=== PATIENT | female | born 1930 | race Caucasian/White ===

== ENCOUNTER 2017-05-10 08:23 | Emergency (ER) | payer BC, OTHER ==
[~2017-05-10 08:23] MED LIST: ACET-1175 PO; ACYC-65 PO; BACI1OIN22 EXT; CYAN500T13 PO; ESCI10TA17 PO; HYZ/10015 PO; LEVO75TA PO; OCUSOFT LID SCRUB EX; OMEP20CA59 PO; RIVA9.5D TD; SIMV20TA2 PO; SYSTANE OPB
[2017-05-10 08:32] VITALS: TEMP 36.8
[2017-05-10] MEDS ORDERED: RIVA4.5C4 PO (08:39)
[2017-05-10] MEDS ORDERED: POTA20TA16 PO (08:39)
[2017-05-10] MEDS ORDERED: MULTTAB PO (08:39)
[2017-05-10] MEDS ORDERED: ACET-1256 PO (08:39)
[2017-05-10] MEDS ORDERED: POLY335019 PO (08:39)
[2017-05-10] MEDS ORDERED: CHOL1000 PO (08:39)
[2017-05-10] MEDS ORDERED: DOCU100C31 PO (08:39)
--- NOTE | 2017-05-10 09:30 | EMERGENCY ROOM VISIT NOTE ---
History Report prepared by Jean Pierre: Bertha Cordero Under the Supervision of: Dr. Kev Joya M.D. First contact with patient: 09:13 Chief Complaint: FALL Stated Complaint: FALL/ NO COMPLAINTS-EVAL / JUNIPER History of Present Illness The patient is an 87 year old female who presents to the Emergency Room with complaints of a sudden fall that occurred [employer]. The patient came to the ED via ambulance from [facility]. Per EMS, the patient resides in the dementia unit and she was found on the floor this morning. The patient denies any complaints or pain. She denies any neck pain or hip pain. She does not recall falling. The history is limited secondary to the patient's dementia. Nursing staff reports that the patient was able to stand up and pivot to get off of the ambulance litter onto the hospital bed without any complaints. Source of History: patient, EMS, nursing staff History Limited By: dementia Onset: [employer] Position: other (global) Quality: other (fall) Timing: other (sudden) Associated Symptoms: No neck pain Note: no hip pain Review of Systems ROS limited secondary to dementia. Past Medical & Surgical Medical Problems: (1) Dementia (2) GERD (gastroesophageal reflux disease) (3) Hyperlipidemia (4) Hypertension (5) Hypothyroidism Family History Hypertension Social History Smoking Status: Former Smoker Alcohol Use: none Housing Status: intermediate Current/Historical Medications Scheduled Acyclovir (Zovirax), 200 MG PO DAILY Cholecalciferol (Vitamin D3), 1,000 INTER.UNIT PO DAILY Cyanocobalamin (Vitamin B12 500MCG), 500 MCG PO DAILY Docusate Sodium (Docusate Sodium), 100 MG PO BID Escitalopram (Lexapro), 10 MG PO DAILY Levothyroxine Sodium (Synthroid), 50 MCG PO DAILY Multiple Vitamins W/ Minerals (I-Mirta Protect), 1 TAB PO DAILY Omeprazole (Prilosec), 20 MG PO DAILY Polyethylene Glycol 3350 (Miralax), 17 GM PO DAILY Potassium Ext Rel (Klor-Con), 20 MEQ PO DAILY Rivastigmine Tartrate (Rivastigmine Tartrate), 4.5 MG PO BID [Systane 0.3-0.4%], 1 DROP OPB 4-6 X DAILY Scheduled PRN Acetaminophen (Tylenol), 500 MG PO Q4 PRN for Pain Allergies Coded Allergies: Aspirin (Verified Allergy, Unknown, unknown, 05/10/17) Donepezil (Verified Allergy, Unknown, unknown, 05/10/17) Lactose Intolerance (GI) (Unverified Allergy, Unknown, GI ISSUES, 05/10/17) Memantine (Verified Allergy, Unknown, unknown, 05/10/17) Physical Exam Vital Signs Date Time Temp Pulse Resp B/P (MAP) Pulse Ox O2 Delivery O2 Flow Rate FiO2 05/10/17 10:17 61 16 139/75 98 Room Air 05/10/17 08:32 36.8 58 16 192/78 98 Room Air Physical Exam GENERAL: Patient awake, alert, oriented x 3. Patient follows commands. Patient does not appear toxic. Patient is adequately hydrated and well- nourished. SKIN: No erythema, pallor, cyanosis or rash HEENT: Normal head, no rosales sign or raccoon sign, opaque left cornea. Ears normal with hemotympanum. Oral cavity and posterior pharynx appear normal. Neck: Supple and nontender. Without adenopathy, no neck vein distention. LUNGS: Clear to auscultation. No wheezes, no rales, no rhonchi. HEART: No murmurs. No gallops. No rubs ABDOMEN: No masses, no rebound, no hepatomegaly or splenomegaly. EXTREMITIES: No signs of trauma. Well-healed scar over right hip. No pain with pelvic rock. Able to flex and extend hips without pain. Walked in the ED and had no difficulty. No pedal or pretibial edema. No calf or thigh tenderness. NEUROLOGIC: Cranial nerves II-XII within normal limits. No gross motor sensory function deficits. Moves all extremities well. GCS 14 due to chronic confusion/ dementia. Medical Decision & Procedures ED Course 0914: Past medical records reviewed. The patient was evaluated in room B3. A complete history and physical examination was performed. 1005: Upon reevaluation, the patient appeared to be resting comfortably and still does not have any complaints. She was discharged back to [facility]. Medical Decision Nurses notes reviewed. Medical history sheet reviewed. Differential diagnosis includes but is not limited to: fall, hip fracture, pelvic fracture, head trauma. Medication Reconciliation: I attest that I have personally reviewed the patient' s current medication list. Blood Pressure Screening: Patient was found to have an elevated blood pressure and follow-up with her primary doctor at [facility] for recheck and further treatment was indicated on her discharge instructions. 87-year-old female with severe dementia was found on the floor at the local nursing facility. She currently has no complaints. Examination reveals no signs of any fractures. The patient was able to walk without difficulty. She has no signs of head trauma. I do not believe the patient requires any labs, imaging or intervention at this time. Impression Primary Impression: Fall Scribe Attestation The scribe's documentation has been prepared under my direction and personally reviewed by me in its entirety. I confirm that the note above accurately reflects all work, treatment, procedures, and medical decision making performed by me. Departure Information Dispostion Home / Self-Care Referrals Ami Gray M.D. (PCP) Forms HOME CARE DOCUMENTATION FORM, IMPORTANT VISIT INFORMATION Patient Instructions My [facility] [address] Additional Instructions Continue all of your current medications as prescribed. Your blood pressure should be rechecked by the doctor at [facility]. Problem Qualifiers Primary Impression: Fall Encounter type: initial encounter Qualified Codes: W19.XXXA - Unspecified fall, initial encounter
[2017-05-10 10:17] VITALS: BP 139/75; PULSE 61; O2SAT 98
== END 2017-05-10 10:35 | disposition home or self-care (01) ==
LOC: EDBD 08:23 → C.EDB 08:24
DX: Z04.8 Encounter for examination and observation for other specified reasons (principal); F03.90 Unspecified dementia, unspecified severity, without behavioral disturbance, psychotic disturbance, mood disturbance, and anxiety; E78.5 Hyperlipidemia, unspecified; E03.9 Hypothyroidism, unspecified; I10 Essential (primary) hypertension; K21.9 Gastro-esophageal reflux disease without esophagitis; Z79.899 Other long term (current) drug therapy; Z87.891 Personal history of nicotine dependence; Z82.49 Family history of ischemic heart disease and other diseases of the circulatory system; W19.XXXA Unspecified fall, initial encounter

== ENCOUNTER 2019-06-16 20:01 | Inpatient (IN) ==
[2019-06-16] MEDS ORDERED: ONDANSETRON INJ 2 MG/ML 2 ML VIAL IV STA (20:10)
[2019-06-16] MEDS ORDERED: MoRPHine SULFATE 4 MG/ML 1 ML CARP\\VIAL IV STA (20:10)
[2019-06-16 20:25] LABS: Basophils # (auto) 0.05 K/uL (0-0.2); Basophils % (auto) 0.6 %; Eosinophils % (auto) 2.3 %; Hematocrit (blood only) 35.7 % (37-47); Hemoglobin 11.6 g/dL (12.0-16.0); Immature Granulocytes # (auto) 0.03 K/uL (0.00-0.02); Immature Granulocytes % (auto) 0.3 %; Lymphocytes # (auto) 3.08 K/uL (1.2-3.4); Lymphocytes % (auto) 35.8 %; Mean Corpuscular Hgb Conc 32.5 g/dL (32-36); Mean Corpuscular Volume 100.8 fL (80-100); Mean Platelet Volume 9.1 fL (7.4-10.4); Monocytes # (auto) 0.49 K/uL (0.11-0.59); Monocytes % (auto) 5.7 %; Neutrophils # (auto) 4.75 K/uL (1.4-6.5); Neutrophils % (auto) 55.3 %; Platelet Count 297 K/uL (130-400); RDW Coefficient of Variation 13.1 % (11.5-14.5); RDW Standard Deviation 48.6 fL (36.4-46.3); Red Blood Count 3.54 M/uL (4.2-5.4)
[2019-06-16 20:44] LABS: Alanine Aminotransferase 21 U/L (12-78); Albumin Level 3.6 gm/dl (3.4-5.0); Aspartate Aminotransferase 19 U/L (15-37); BUN Creatinine Ratio 25.4 (10-20); Blood Urea Nitrogen 24 mg/dl (7-18); Calcium 8.9 mg/dl (8.5-10.1); Carbon Dioxide 28 mmol/L (21-32); Chloride 107 mmol/L (98-107); Est GFR (Non-African American) 53.5; Glucose 148 mg/dl (70-99); Potassium 4.1 mmol/L (3.5-5.1); Sodium 141 mmol/L (136-145)
[2019-06-16 20:47] LABS: Albumin Globulin Ratio 1.1 (0.9-2); Alkaline Phosphatase 95 U/L (45-117); Bilirubin,Total 0.2 mg/dl (0.2-1); Globulin 3.2 gm/dl (2.5-4.0); Total Protein 6.8 gm/dl (6.4-8.2)
--- NOTE | 2019-06-16 20:56 | CT Scan Report ---
CT SCAN OF THE BRAIN WITHOUT IV CONTRAST CLINICAL HISTORY: Fall. Head injury. COMPARISON STUDY: No priors. TECHNIQUE: Unenhanced axial CT scan of the brain is performed from the vertex to the skull base. A do se lowering technique was utilized adhering to the principles of ALARA. FINDINGS: Brain parenchyma: There are age-related involutional changes noting moderate subcortical and periven tricular microangiopathic change. There is no hemorrhage, mass effect, or evidence of acute territori al ischemia by CT criteria. Abrams-white matter differentiation is preserved. No extra-axial fluid elsa ection is seen. Ventricles, sulci, cisterns: Prominent secondary to involutional change. Intracranial vasculature: There is atherosclerotic calcification of the cavernous carotid and vertebr al arteries. Calvarium: The skeletal structures are osteopenic. No depressed calvarial fracture is identified. Soft tissues: There is a small right frontal scalp contusion. Sinuses and mastoids: The visualized paranasal sinuses are clear. The mastoid air cells are well pneu matized. Orbits: The bony orbits are grossly intact. There is a left ocular lens implant. IMPRESSION: There is no hemorrhage, mass effect, or evidence of acute territorial ischemia by CT cri teria. Electronically signed by: Corey Coker M.D. 06/16/2019 8:55 PM
--- NOTE | 2019-06-16 21:14 | XRay Report ---
SINGLE VIEW PELVIS; 3 VIEWS RIGHT FEMUR CLINICAL HISTORY: Fall. Right hip pain. FINDINGS: An AP, portable, supine view of the pelvis with AP, frog-leg, and lateral portable views of the right femur are obtained. No prior studies are available for comparison at the time of dictation . The skeletal structures are osteopenic. There is no radiographic evidence of acute fracture involvi ng the bony pelvis or the left hip. A bipolar right hip arthroplasty is in near anatomic alignment. T here is a minimally distracted periprosthetic fracture identified in the proximal femoral shaft aroun d the arthroplasty. The distal right femur is intact. Moderate degenerative joint space narrowing is seen in the left hip. Lumbosacral spondylosis is partially visualized. There is atherosclerotic calci fication of the right femoral artery. Mild soft tissue edema is noted in the right proximal thigh. IMPRESSION: 1. There is no radiographic evidence of fracture involving the bony pelvis or left hip. 2. There is a minimally distracted periprosthetic spiral fracture around the right hip arthroplasty. Electronically signed by: Corey Coker M.D. 06/16/2019 9:13 PM
--- NOTE | 2019-06-16 21:18 | CT Scan Report ---
CT SCAN OF THE CERVICAL SPINE CLINICAL HISTORY: Fall. Head injury. COMPARISON STUDY: No priors. TECHNIQUE: CT scan of the cervical spine is performed from the skull base to the upper thoracic spine . Images are reviewed in the axial, sagittal, and coronal planes. IV contrast was not administered fo r this examination. A dose lowering technique was utilized adhering to the principles of ALARA. CT DOSE: 953.77 mGy.cm FINDINGS: Skeletal structures: The skeletal structures are osteopenic. There is no evidence of fracture or subl uxation involving the cervical spine. Vertebral body height and alignment are maintained. There is st raightening of the cervical lordosis. Anterior osteophytes are seen throughout. The odontoid process and lateral masses are intact. The atlantoaxial articulation is preserved noting productive degenerat bijal change. The spinous processes appear intact. There is moderate to advanced multilevel cervical sp ondylosis. Uncovertebral and facet arthropathy contribute to neural from stenosis at most levels. Intervertebral discs: There is moderate to advanced disc space narrowing seen at C5-C6 and C6-C7. Mil d to moderate disc space narrowing is seen at the remaining cervical levels. Central canal: Posterior disc osteophyte complexes at C3-C4, C5-C6, and C6-C7 likely contribute to mi ld acquired compromise of the central canal. Soft tissues: The prevertebral and paraspinous soft tissues are within normal limits. Left lobe of th e thyroid gland is diminutive versus surgically absent. Calvarium: The visualized calvarium at the skull base appears intact. Brain parenchyma: Partially visualized brain parenchyma the skull base is within normal limits noting age-related involutional change. Sinuses and mastoids: The visualized paranasal sinuses are clear. The mastoid air cells are well pneu matized. Lung apices: Clear as visualized. IMPRESSION: 1. There is no evidence of fracture or subluxation involving the cervical spine. 2. Osteopenia and spondylotic change as above. Electronically signed by: Corey Coker M.D. 06/16/2019 9:17 PM
--- NOTE | 2019-06-16 21:20 | XRay Report ---
SINGLE VIEW CHEST CLINICAL HISTORY: Fall. FINDINGS: An AP, portable, supine chest radiograph is compared to study dated 07/31/2012. The examinat ion is degraded by portable technique and patient rotation. The heart is enlarged and there is athe rosclerotic calcification of the thoracic aorta. The pulmonary vasculature is noncongested. Chronic i nterstitial thickening is similar to previous. Mild scarring/atelectasis is noted at the lung bases. No airspace consolidation or large pleural effusion is identified. No pneumothorax is seen. The skele seng structures are osteopenic. The bony thorax is grossly intact. IMPRESSION: Cardiomegaly with no acute cardiopulmonary abnormality. Electronically signed by: Corey Coker M.D. 06/16/2019 9:18 PM
--- NOTE | 2019-06-16 22:09 | History & Physical Report ---
Date of Service June 16, 2019 Assessment & Plan (1) Periprosthetic fracture around internal prosthetic right hip joint: Periprosthetic hip fracture around right total hip arthroplasty- Admit to medical surgical. N.p.o. IV fluids. Acetaminophen 1 g IV every 8 hours PRN mild pain or temperature. Morphine sulfate 2 mg IV q. every 3 hours as needed severe pain. Consult orthopedic surgery. Present on Admission?: Yes (2) GERD (gastroesophageal reflux disease): Placed on famotidine 20 mg IV every 12 hours Present on Admission?: Yes (3) Hypothyroidism: Convert levothyroxine to IV dosing if remains n.p.o. Present on Admission?: Yes (4) Dementia: Dementia/depression- While n.p.o., hold Lexapro and rivastigmine. Present on Admission?: Yes (5) Fall: Status post fall, leading to right periprosthetic hip fracture. Bruising right yazidi area assessed with CT head and cervical spine, without acute findings. Present on Admission?: Yes (6) Facial bruising: Noted post fall, imaging without fracture. Present on Admission?: Yes (7) Depression: See above. Present on Admission?: Yes History of Present Illness Chief Complaint: The patient presents to emergency department after noted to have a fall at [facility], and complains of right hip pain. There is also a bruised area on her right yazidi. Primary Care Provider: Tomeka Hickey at [place] The patient is not able to contribute to HPI due to sedation from IV morphine. She is a resident of [facility], and was sent after a fall, to which she developed right hip pain and has a bruise over her right yazidi area. Allergies Allergy/AdvReac Type Severity Reaction Status Date / Time aspirin Allergy Unknown unknown Verified 06/16/19 21:14 donepezil Allergy Unknown unknown Verified 06/16/19 21:14 lactose Allergy Unknown GI ISSUES Verified 06/16/19 21:14 memantine Allergy Unknown unknown Verified 06/16/19 21:14 Home Medications Home Medications Medication Instructions Recorded Confirmed Type acetaminophen 500 mg PO BID 06/16/19 06/16/19 History acyclovir 200 mg PO DAILY 06/16/19 06/16/19 History cholecalciferol (vitamin D3) 1,000 unit PO DAILY 06/16/19 06/16/19 History [Vitamin D3] cyanocobalamin (vitamin B-12) 500 mcg PO DAILY 06/16/19 06/16/19 History [Vitamin B-12] escitalopram oxalate 10 mg PO DAILY 06/16/19 06/16/19 History eyelid cleanser combination 5 1 pad TOPICAL 3XWK 06/16/19 06/16/19 History [OcuSoft Lid Scrub] famotidine 20 mg PO HS PRN 06/16/19 06/16/19 History levothyroxine 50 mcg PO 5XWK 06/16/19 06/16/19 History levothyroxine 75 mcg PO 2XWK 06/16/19 06/16/19 History polyethylene glycol 3350 17 g PO BID 06/16/19 06/16/19 History potassium chloride [Klor-Con M20] 20 meq PO DAILY 06/16/19 06/16/19 History rivastigmine tartrate 4.5 mg PO BID 06/16/19 06/16/19 History sennosides [senna] 8.6 mg PO HS 06/16/19 06/16/19 History tramadol 50 mg PO Q6H PRN 06/16/19 06/16/19 History Past Med/Surg History Medical History Hyperlipidemia (Chronic) Hypertension (Chronic) Dementia (Chronic) Hypothyroidism (Chronic) GERD (gastroesophageal reflux disease) (Chronic) Social History Preferred Language: Lithuanian Communication Ability: 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 HEENT--PERRL, EOMI, mucous membranes and oropharynx dry. Neck--supple. No JVD. No bruits. Thyroid normal, trachea midline, no adenopathy. Heart--normal S1 and S2. No murmurs, rubs or gallops. Lungs--diminished throughout, no respiratory distress, no accessory muscle use. Abdomen--normal bowel sounds and soft. Nontender. Nondistended. Extremities--no cyanosis or clubbing. No edema. There are good distal pulses b/l. Dermatologic--normal skin turgor, normal color, no abnormal lymph nodes, no rash. Neurologic--cranial nerves II through XII grossly intact. Rheumatologic--deferred due to cognitive status Psychiatric--sedated. Results & Data Vital Signs (Past 12 Hours) Vital Signs Temp Pulse Resp BP Pulse Ox 06/16/19 21:10 60 16 92 06/16/19 21:01 58 L 21 195/77 H 93 06/16/19 21:00 59 L 19 93 06/16/19 20:57 59 L 19 95 06/16/19 20:20 97.5 F L 60 19 195/79 H 97 06/16/19 20:18 57 L 15 195/79 H 94 Laboratory Results Laboratory Results WBC 8.60 K/uL (4.8-10.8) 06/16/19 20:18 RBC 3.54 M/uL (4.2-5.4) L 06/16/19 20:18 Hgb 11.6 g/dL (12.0-16.0) L 06/16/19 20:18 Hct 35.7 % (37-47) L 06/16/19 20:18 MCV 100.8 fL (80-100) H 06/16/19 20:18 MCH 32.8 pg (25-34) 06/16/19 20:18 MCHC 32.5 g/dL (32-36) 06/16/19 20:18 RDW Std Deviation 48.6 fL (36.4-46.3) H 06/16/19 20:18 RDW Coeff of Edward 13.1 % (11.5-14.5) 06/16/19 20:18 Plt Count 297 K/uL (130-400) 06/16/19 20:18 MPV 9.1 fL (7.4-10.4) 06/16/19 20:18 Immature Gran % (Auto) 0.3 % 06/16/19 20:18 Neut % (Auto) 55.3 % 06/16/19 20:18 Lymph % (Auto) 35.8 % 06/16/19 20:18 [place] % (Auto) 5.7 % 06/16/19 20:18 Eos % (Auto) 2.3 % 06/16/19 20:18 Baso % (Auto) 0.6 % 06/16/19 20:18 Immature Gran # (Auto) 0.03 K/uL (0.00-0.02) H 06/16/19 20:18 Neut # (Auto) 4.75 K/uL (1.4-6.5) 06/16/19 20:18 Lymph # (Auto) 3.08 K/uL (1.2-3.4) 06/16/19 20:18 [place] # (Auto) 0.49 K/uL (0.11-0.59) 06/16/19 20:18 Eos # (Auto) 0.20 K/uL (0-0.5) 06/16/19 20:18 Baso # (Auto) 0.05 K/uL (0-0.2) 06/16/19 20:18 Sodium 141 mmol/L (136-145) 06/16/19 20:18 Potassium 4.1 mmol/L (3.5-5.1) 06/16/19 20:18 Chloride 107 mmol/L (98-107) 06/16/19 20:18 Carbon Dioxide 28 mmol/L (21-32) 06/16/19 20:18 Anion Gap 6.0 (3-11) 06/16/19 20:18 BUN 24 mg/dl (7-18) H 06/16/19 20:18 Creatinine 0.95 mg/dl (0.6-1.2) 06/16/19 20:18 Est Cr Clr Drug Dosing Not Reportable 06/16/19 20:18 Est GFR ( Amer) 62.0 06/16/19 20:18 Est GFR (Non-Af Amer) 53.5 06/16/19 20:18 BUN/Creatinine Ratio 25.4 (10-20) H 06/16/19 20:18 Glucose 148 mg/dl (70-99) H 06/16/19 20:18 Calcium 8.9 mg/dl (8.5-10.1) 06/16/19 20:18 Total Bilirubin 0.2 mg/dl (0.2-1) 06/16/19 20:18 AST 19 U/L (15-37) 06/16/19 20:18 ALT 21 U/L (12-78) 06/16/19 20:18 Alkaline Phosphatase 95 U/L (45-117) 06/16/19 20:18 Total Protein 6.8 gm/dl (6.4-8.2) 06/16/19 20:18 Albumin 3.6 gm/dl (3.4-5.0) 06/16/19 20:18 Globulin 3.2 gm/dl (2.5-4.0) 06/16/19 20:18 Albumin/Globulin Ratio 1.1 (0.9-2) 06/16/19 20:18 Nasal Screen MRSA (PCR) Positive (Negative) A 06/16/19 22:38 Diagnostic Findings [place] [phone] XRay Report Patient: Alireza YOUNG Date: 06/16/19 MR#: [id number]: [address] Acct ID:[id number]: Date: 1930[facility] Zip: [place] [address] Age: 89Location: ED Sex: F Room/Bed: Att Phy: Diagnosis: FALL, R LEG PAIN Meaghan Phy: [facility] Date: 06/16/19 Fam Phy: Interpreting Phy: Corey Coker MD Admit Phy: Ordering Phy: Alexander Tabares, cc: ~ SINGLE VIEW PELVIS; 3 VIEWS RIGHT FEMUR CLINICAL HISTORY: Fall. Right hip pain. FINDINGS: An AP, portable, supine view of the pelvis with AP, frog-leg, and lateral portable views of the right femur are obtained. No prior studies are available for comparison at the time of dictation. The skeletal structures are osteopenic. There is no radiographic evidence of acute fracture involving the bony pelvis or the left hip. A bipolar right hip arthroplasty is in near anatomic alignment. There is a minimally distracted periprosthetic fracture identified in the proximal femoral shaft around the arthroplasty. The distal right femur is intact. Moderate degenerative joint space narrowing is seen in the left hip. Lumbosacral spondylosis is partially visualized. There is atherosclerotic calcification of the right femoral artery. Mild soft tissue edema is noted in the right proximal thigh. IMPRESSION: 1. There is no radiographic evidence of fracture involving the bony pelvis or left hip. 2. There is a minimally distracted periprosthetic spiral fracture around the right hip arthroplasty. Electronically signed by: Corey Coker M.D. 06/16/2019 9:13 PM Dictated: 06/16/192108 Transcribed: 06/16/192108 [facility], [place] [phone] CT Scan Report Patient: Alireza YOUNG Date: 06/16/19 MR#: [id number]: 25 ANNA NOY[address] Acct ID:[id number]: Date: 1930[facility] Zip: [place] [address] Age: 89Location: ED Sex: F Room/Bed: Att Phy: Diagnosis: FALL, R LEG PAIN Meaghan Phy: [facility] Date: 06/16/19 Fam Phy: Interpreting Phy: Corey Coker MD Admit Phy: Ordering Phy: Alexander Tabares DO cc: ~ CT SCAN OF THE BRAIN WITHOUT IV CONTRAST CLINICAL HISTORY: Fall. Head injury. COMPARISON STUDY: No priors. TECHNIQUE: Unenhanced axial CT scan of the brain is performed from the vertex to the skull base. A dose lowering technique was utilized adhering to the principles of ALARA. FINDINGS: Brain parenchyma: There are age-related involutional changes noting moderate subcortical and periventricular microangiopathic change. There is no hemorrhage, mass effect, or evidence of acute territorial ischemia by CT criteria. Abrams- white matter differentiation is preserved. No extra-axial fluid collection is seen. Ventricles, sulci, cisterns: Prominent secondary to involutional change. Intracranial vasculature: There is atherosclerotic calcification of the cavernous carotid and vertebral arteries. Calvarium: The skeletal structures are osteopenic. No depressed calvarial fracture is identified. Soft tissues: There is a small right frontal scalp contusion. Sinuses and mastoids: The visualized paranasal sinuses are clear. The mastoid air cells are well pneumatized. Orbits: The bony orbits are grossly intact. There is a left ocular lens implant. IMPRESSION: There is no hemorrhage, mass effect, or evidence of acute territorial ischemia by CT criteria. Electronically signed by: Corey Coker M.D. 06/16/2019 8:55 PM Dictated: 06/16/192052 Transcribed: 06/16/192052 [facility] [place] [phone] XRay Report Patient: Alireza YOUNG Date: 06/16/19 MR#: [id number]: Mark CASTILLO Acct ID:[id number]: Date: [address] [place] [address] Zip: [place] [address] Age: 89Location: ED Sex: F Room/Bed: Att Phy: Diagnosis: FALL, R LEG PAIN Meaghan Phy: [facility] Date: 06/16/19 Fam Phy: Interpreting Phy: Corey Coker MD Admit Phy: Ordering Phy: Alexander Tabares DO cc: ~ SINGLE VIEW CHEST CLINICAL HISTORY: Fall. FINDINGS: An AP, portable, supine chest radiograph is compared to study dated 07/31/2012. The examination is degraded by portable technique and patient rotation. The heart is enlarged and there is atherosclerotic calcification of the thoracic aorta. The pulmonary vasculature is noncongested. Chronic interstitial thickening is similar to previous. Mild scarring/atelectasis is noted at the lung bases. No airspace consolidation or large pleural effusion is identified. No pneumothorax is seen. The skeletal structures are osteopenic. The bony thorax is grossly intact. IMPRESSION: Cardiomegaly with no acute cardiopulmonary abnormality. Electronically signed by: Corey Coker M.D. 06/16/2019 9:18 PM Dictated: 06/16/192116 Transcribed: 06/16/192116 [place] [phone] CT Scan Report Patient: Alireza YOUNG Date: 06/16/19 MR#: [id number]: Mark CASTILLO Acct ID:[id number]: Date: [address] [place] [address] Zip: [place] [address] Age: 89Location: ED Sex: F Room/Bed: Att Phy: Diagnosis: FALL, R LEG PAIN Meaghan Phy: [facility] Date: 06/16/19 Fam Phy: Interpreting Phy: Corey Coker MD Admit Phy: Ordering Phy: Alexander Tabares DO cc: ~ CT SCAN OF THE CERVICAL SPINE CLINICAL HISTORY: Fall. Head injury. COMPARISON STUDY: No priors. TECHNIQUE: CT scan of the cervical spine is performed from the skull base to the upper thoracic spine. Images are reviewed in the axial, sagittal, and coronal planes. IV contrast was not administered for this examination. A dose lowering technique was utilized adhering to the principles of ALARA. CT DOSE: 953.77 mGy.cm FINDINGS: Skeletal structures: The skeletal structures are osteopenic. There is no evidence of fracture or subluxation involving the cervical spine. Vertebral body height and alignment are maintained. There is straightening of the cervical lordosis. Anterior osteophytes are seen throughout. The odontoid process and lateral masses are intact. The atlantoaxial articulation is preserved noting productive degenerative change. The spinous processes appear intact. There is moderate to advanced multilevel cervical spondylosis. Uncovertebral and facet arthropathy contribute to neural from stenosis at most levels. Intervertebral discs: There is moderate to advanced disc space narrowing seen at C5-C6 and C6-C7. Mild to moderate disc space narrowing is seen at the remaining cervical levels. Central canal: Posterior disc osteophyte complexes at C3-C4, C5-C6, and C6-C7 likely contribute to mild acquired compromise of the central canal. Soft tissues: The prevertebral and paraspinous soft tissues are within normal limits. Left lobe of the thyroid gland is diminutive versus surgically absent. Calvarium: The visualized calvarium at the skull base appears intact. Brain parenchyma: Partially visualized brain parenchyma the skull base is within normal limits noting age-related involutional change. Sinuses and mastoids: The visualized paranasal sinuses are clear. The mastoid air cells are well pneumatized. Lung apices: Clear as visualized. IMPRESSION: 1. There is no evidence of fracture or subluxation involving the cervical spine. 2. Osteopenia and spondylotic change as above. Electronically signed by: Corey Coker M.D. 06/16/2019 9:17 PM Dictated: 06/16/192112 Transcribed: 06/16/192112 Code Status & VTE Plan Code Status DNR/DNI VTE Prophylaxis Plan VTE Prophylaxis will be ordered: Yes PG Care Time/CCT Total # of Minutes Spent Total Time Spent with Patient: Total time spent is greater than 50% in coordination of care (as documented) at patient's floor/unit and/or counseling patient: (1) Fall Encounter type: initial encounter Qualified Code(s): W19.XXXA - Unspecified fall, initial encounter (2) Facial bruising Encounter type: initial encounter Qualified Code(s): S00.83XA - Contusion of other part of head, initial encounter
[2019-06-16] MEDS ORDERED: ACETAMINOPHEN 1,000 MG/100 ML VIAL IV PRN (23:10)
[2019-06-16] MEDS ORDERED: ONDANSETRON INJ 2 MG/ML 2 ML VIAL IV PRN (23:10)
[2019-06-16] MEDS: NSS + 20MEQ KCL 20 MEQ/1,000 ML BAG IV SCH (23:23)
[2019-06-16] MEDS: MoRPHine SULFATE 2 MG/ML CARP IV PRN (23:23)
[2019-06-16] MEDS: FAMOTIDINE 20 MG in SYRINGE 3 ML IV SCH (23:48)
[2019-06-17] MEDS: MoRPHine SULFATE 2 MG/ML CARP IV PRN ×2 (08:36→18:43)
[2019-06-17] MEDS: FAMOTIDINE 20 MG in SYRINGE 3 ML IV SCH ×2 (09:58→21:34)
[2019-06-17] MEDS ORDERED: HydrALAZINE HCL 20 MG/ML VIAL IV STA (10:41)
[2019-06-17] MEDS ORDERED: HydrALAZINE HCL 20 MG/ML VIAL IV PRN (10:41)
[2019-06-17 10:44] LABS: Appearance Urine Clear (Clear); Bacteria Urine Automated Negative (Negative); Bilirubin Urine Negative (Negative); Blood Urine Negative (Negative); Cast Urine Automated 0 /lpf (0-5); Color Urine Yellow; Glucose Urine UA Negative (Negative); Ketones Urine Negative (Negative); Leukocyte Esterase Urine 1+ (Negative); Nitrite Urine Negative (Negative); Protein Urine Negative (Negative); RBC Urine Automated 0-4 /hpf (0-4); Specific Gravity Urine 1.016 (1.000-1.030); Urobilinogen Urine Negative (Negative)
--- NOTE | 2019-06-17 11:22 | XRay Report ---
XR shoulder RT min 2V routine CLINICAL HISTORY: 89 years-old Female presenting with trauma and pain. TECHNIQUE: Internal rotation, external rotation, and Grashey views of the right shoulder were obtaine d. COMPARISON: Correlation made to chest x-ray from 07/31/2012. FINDINGS: Glenohumeral and acromioclavicular joints congruent. Osteophytosis at the inferior humeral head and b mitzi glenoid. Hypertrophic degenerative changes of the AC joint also evident. Effacement of the acromi ohumeral interval with inferior bony spurring of the acromion concerning for chronic rotator cuff imp ingement. Underlying osteopenia. No acute fracture or malalignment. No deformity of the humeral head. No radiographic soft tissue abnormality. IMPRESSION: 1. Advanced degenerative changes of the glenohumeral and acromioclavicular joints with findings sugg esting chronic rotator cuff impingement. 2. No acute osseous injury. 3. Osteopenia. Electronically signed by: Rachid Lunsford M.D. 06/17/2019 11:20 AM
--- NOTE | 2019-06-17 13:57 | Hospitalist Progress Note ---
Date of Service June 17, 2019 Assessment & Plan (1) Periprosthetic fracture around internal prosthetic right hip joint: Status post mechanical fall from ground-level Fall is likely secondary to unsteadiness Likely osteoporosis due to fracture from ground-level fall Continue supportive care Pain management Consult orthopedic Right shoulder x-ray to investigate pain showed Advanced degenerative changes of the glenohumeral and acromioclavicular joints with findings suggesting chronic rotator cuff impingement. No fracture. CT head and cervical spine showed no fracture Femur x-ray and pelvic x-ray showed minimally distracted periprosthetic spiral fracture around the right hip arthroplasty Urine analysis showed no infection. (2) GERD (gastroesophageal reflux disease): Placed on famotidine 20 mg IV every 12 hours (3) Hypothyroidism: restart synthroid check TSH (4) Dementia: Dementia/depression- restart Lexapro and rivastigmine. Swallow evaluation name Currently start on thick liquid to be safe (5) Fall: Status post mechanical fall from ground-level Fall is likely secondary to unsteadiness Likely osteoporosis due to fracture from ground-level fall (6) Facial bruising: Noted post fall, imaging without fracture. (7) Depression: restart depression meds (8) Hypertensive urgency: poorly controlled pressure plus pain start hydralazine 10mg IV prn Subjective Patient has advanced dementia, currently lethargic from pain medications. Discussed case with her daughter at bedside, stated that her mother is a DNR. Her dementia is likely at her baseline with a little bit worsening secondary to the pain medications. Stated that her mother was unsteady in her gait but because of the fall is unknown. Review of Systems Review of Systems: Review of system was unobtainable due to patient's lethargy and dementia Physical Exam Physical Exam: Physical examination General patient appears to be comfortable, not in acute distress, HEENT: Atraumatic , normocephalic /no jaundice /no pallor /anicteric /no dry mucous membrane /normal external ear inspection Neck: Supple /no swelling /central trach Heart: S1/S2 normal/regular rate and rhythm/no gallop /no rub /no murmur Lungs: Clear to auscultation bilaterally/normal chest with expansion/no rhonchi/no rales/no wheezing/no use of accessory muscles of respiration Abdomen: Soft/nontender/no guarding/no rebound/no organomegaly/no pulsatile mass Musculoskeletal: Currently sleeping lethargic from morphine IV. Pain in right shoulder and right hip. Neuro exam, lethargic, not following commands, slightly worse than her baseline dementia. Psychiatric exam unable to evaluate due to patient condition Skin: No rash on exposed skin area/no erythema Results & Data Vital Signs (Past 12 Hours) Vital Signs Temp Pulse Resp BP Pulse Ox 06/17/19 12:00 77 158/67 H 06/17/19 10:24 68 212/68 H 06/17/19 08:49 36.9 C 65 18 187/76 H 93 PG Care Time/CCT Total # of Minutes Spent Total Time Spent with Patient: Total time spent is greater than 50% in coordination of care (as documented) at patient's floor/unit and/or counseling patient: (1) Fall Encounter type: initial encounter Qualified Code(s): W19.XXXA - Unspecified fall, initial encounter (2) Facial bruising Encounter type: initial encounter Qualified Code(s): S00.83XA - Contusion of other part of head, initial encounter
[2019-06-17] MEDS: NSS + 20MEQ KCL 20 MEQ/1,000 ML BAG IV SCH (14:33)
[2019-06-17] MEDS ORDERED: PNEUMOCOCCAL ADMINISTRATION CHARGE ONE (18:30)
[2019-06-17] MEDS ORDERED: PNEUMOCOCCAL POLYSACCHARIDES 25 MCG/0.5 ML VIAL/SYR IM ONE (18:30)
[2019-06-17] MEDS ORDERED: CEFAZOLIN 2000MG 2,000 MG/15 ML SYR IV ONE (18:37)
--- NOTE | 2019-06-17 18:42 | Consultation Report ---
DATE OF CONSULTATION: 06/17/2019 ORTHOPEDIC CONSULTATION CHIEF COMPLAINT: Inability to ambulate. HISTORY OF PRESENT ILLNESS: An 89-year-old female with fairly advanced dementia, currently residing at [facility] in a dementia unit who presented to the Emergency Room last evening status post a fall with inability to ambulate and increased right leg pain. The patient is significantly demented and unable to give a history. I did talk to her stepdaughter, Lyndsey Payton, who provided some history. The patient previously was an independent ambulator and walking around quite a bit. No significant preexisting hip pain. She sustained this fall and could not walk afterwards. She was brought to the Emergency Room where x-rays revealed a periprosthetic femur fracture. We are consulted for evaluation. There have been no other apparent injuries. PAST MEDICAL HISTORY: Significant for: 1. Severe dementia. 2. Hypothyroidism. 3. Gastroesophageal reflux disease. 4. Elevated cholesterol. PAST SURGICAL HISTORY: Includes right total hip replacement done in [place] several years ago. The remainder of the past medical history is per the admission H and P. PHYSICAL EXAMINATION: GENERAL: Shows a pleasant elderly female. She is lying in bed and just kind of moving around and seems a little bit agitated. MUSCULOSKELETAL: Her general musculoskeletal exam reveals no obvious abnormalities to her upper extremities or left lower extremity. Examination of the right hip does reveal a bruising on the lateral side of her right hip. Her right leg is just a little bit externally rotated. No significant leg length discrepancy. She moves her foot appropriately. There is no global instability to her femur. She does seem to have pain with any type of hip and leg manipulation on the right side. There is no knee effusion. X-RAYS: X-rays of the right hip were reviewed. It shows a right periprosthetic femur fracture through an uncemented stem. It does look like the stem is probably still fixed to at least one of the fragments. Her hip is located. Remainder of x-rays including a C-spine CT as well as a shoulder x-ray and head CT showed no acute injuries. ASSESSMENT: An 89-year-old white female with pretty severe dementia, but an independent ambulator with a right periprosthetic femur fracture. It is a little difficult to assess the stability of the implant, but it looks to be reasonably well fixed to one of the components. PLAN: I had a long discussion with the patient's daughter and power of attorney at law today. We discussed operative and nonoperative treatments. She is pretty adamant about proceeding with operative treatment for pain control and to restore her ambulatory status. We talked about the risks include but not limited to DVT, PE, , infection, neurological injury, vascular injury, bleeding problem, pain, limited range of motion, stiffness, failure to relieve her symptoms, fracture, leg length inequality, nerve palsy, nonunion, etc. She understands and would like to proceed. We will keep her n.p.o. after midnight. We will continue DVT prophylaxis including TEDs and SCDs. SHE APPARENTLY HAS AN ASPIRIN ALLERGY. We will plan on doing this tomorrow. She will be nonweightbearing for 6 weeks afterwards.
[2019-06-17] MEDS: ACETAMINOPHEN 500 MG TAB PO SCH (20:37)
[2019-06-17] MEDS: RIVASTIGMINE TARTRATE 1.5 MG CAP PO SCH (20:38)
[2019-06-17] MEDS: SENNA 8.6 MG TAB PO SCH (20:39)
[2019-06-17] MEDS: POLYETHYLENE (MIRALAX) 17 GM PACK PO SCH (20:45)
[2019-06-18] MEDS: MoRPHine SULFATE 2 MG/ML CARP IV PRN ×2 (01:12→21:21)
[2019-06-18] MEDS: NSS + 20MEQ KCL 20 MEQ/1,000 ML BAG IV SCH ×2 (02:09→18:49)
[2019-06-18] MEDS: LEVOTHYROXINE SODIUM 50 MCG TABLET PO SCH (05:58)
[2019-06-18 07:14] LABS: Hematocrit (blood only) 30.8 % (37-47); Hemoglobin 10.1 g/dL (12.0-16.0); Mean Corpuscular Hgb Conc 32.8 g/dL (32-36); Mean Corpuscular Volume 101.3 fL (80-100); Platelet Count 247 K/uL (130-400); RDW Coefficient of Variation 13.6 % (11.5-14.5); RDW Standard Deviation 50.4 fL (36.4-46.3); Red Blood Count 3.04 M/uL (4.2-5.4); White Blood Count 7.79 K/uL (4.8-10.8)
[2019-06-18 07:49] LABS: BUN Creatinine Ratio 19.1 (10-20); Calcium 8.5 mg/dl (8.5-10.1); Creatinine Clr Calc Pharmacy 45.3 ml/min; Est GFR (Non-African American) 63.9; Potassium 4.1 mmol/L (3.5-5.1)
[2019-06-18] MEDS: ACETAMINOPHEN 500 MG TAB PO SCH ×2 (08:08→21:53)
--- NOTE | 2019-06-18 08:09 | Progress Note ---
DATE: 06/18/2019 SUBJECTIVE: An 89-year-old white female admitted with a right periprosthetic femur fracture after a fall. There is no interval change in her situation since last night. She continues to be demented. Really difficult to get any history. Does not seem majorly uncomfortable. OBJECTIVE: VITAL SIGNS: Temperature 37.1. Vital signs stable. GENERAL: Shows an elderly demented female. She is kind of moving around in bed. EXTREMITIES: Her right leg is slightly externally rotated, but not much shortening. Not much swelling. She does have a bruise over her lateral hip. She is neurologically intact. LABORATORY DATA: Hemoglobin 10.1, hematocrit 30.8. Electrolytes are pending. ASSESSMENT: An 89-year-old white female with underlying dementia with a periprosthetic femur fracture. I have discussed this in depth with her daughter and they would like to proceed with surgical fixation. PLAN: We are going to take her to the operating room later today and do an ORIF of a right periprosthetic femur fracture. The risks and benefits of this procedure were explained to the daughter and power of claims attorney. We will keep her n.p.o. for today. DVT prophylaxis includes TEDs, SCDs.
[2019-06-18] MEDS: RIVASTIGMINE TARTRATE 1.5 MG CAP PO SCH ×2 (08:10→21:52)
[2019-06-18] MEDS: POTASSIUM CHLORIDE 20 MEQ TABCR PO SCH (08:11)
[2019-06-18] MEDS: ESCITALOPRAM OXALATE 10 MG TAB PO SCH (08:12)
[2019-06-18] MEDS: CHOLECALCIFEROL 1,000 UNITS TAB PO SCH (08:13)
[2019-06-18] MEDS: ACYCLOVIR 200 MG CAP PO SCH (08:13)
[2019-06-18] MEDS: CYANOCOBALAMIN 500 MCG TABLET (VITAMIN B-12) PO SCH (08:13)
[2019-06-18] MEDS: POLYETHYLENE (MIRALAX) 17 GM PACK PO SCH ×2 (08:15→21:53)
[2019-06-18] MEDS: TRAMADOL HCL 50 MG TABLET PO PRN (08:23)
[2019-06-18] MEDS: FAMOTIDINE 20 MG in SYRINGE 3 ML IV SCH ×2 (08:24→20:27)
[2019-06-18] MEDS ORDERED: BUPIVACAINE/EPINEPHRINE 0.5% MPF 1:200,000 30 ML VIAL ONE (13:47)
--- NOTE | 2019-06-18 14:01 | Emergency Department Note ---
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 Per EMS, the patient was being held to the ground by the staff at [facility], her residence, because they were concerned about her lower extremities after the fall. EMS notes that the staff at [facility] stated the patient was more agitated than her baseline. The patient denies any pain or other complaints. Per EMS, the patient does not take blood thinners. HPI limited secondary to patient's dementia. Home Medications Home Medications Medication Instructions Recorded Confirmed Type acetaminophen 500 mg PO BID 06/16/19 06/16/19 History acyclovir 200 mg PO DAILY 06/16/19 06/16/19 History cholecalciferol (vitamin D3) 1,000 unit PO DAILY 06/16/19 06/16/19 History [Vitamin D3] cyanocobalamin (vitamin B-12) 500 mcg PO DAILY 06/16/19 06/16/19 History [Vitamin B-12] escitalopram oxalate 10 mg PO DAILY 06/16/19 06/16/19 History eyelid cleanser combination 5 1 pad TOPICAL 3XWK 06/16/19 06/16/19 History [OcuSoft Lid Scrub] famotidine 20 mg PO HS PRN 06/16/19 06/16/19 History levothyroxine 50 mcg PO 5XWK 06/16/19 06/16/19 History levothyroxine 75 mcg PO 2XWK 06/16/19 06/16/19 History polyethylene glycol 3350 17 g PO BID 06/16/19 06/16/19 History potassium chloride [Klor-Con M20] 20 meq PO DAILY 06/16/19 06/16/19 History rivastigmine tartrate 4.5 mg PO BID 06/16/19 06/16/19 History sennosides [senna] 8.6 mg PO HS 06/16/19 06/16/19 History tramadol 50 mg PO Q6H PRN 06/16/19 06/16/19 History Allergies Allergy/AdvReac Type Severity Reaction Status Date / Time aspirin Allergy Unknown unknown Verified 06/16/19 21:14 donepezil Allergy Unknown unknown Verified 06/16/19 21:14 lactose Allergy Unknown GI ISSUES Verified 06/16/19 21:14 memantine Allergy Unknown unknown Verified 06/16/19 21:14 Past Med/Surg History Medical History Hyperlipidemia (Chronic) Hypertension (Chronic) Dementia (Chronic) Hypothyroidism (Chronic) GERD (gastroesophageal reflux disease) (Chronic) Social History Preferred Language: [place]guill[place] Communication Ability: Impaired 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 and A total of 10 systems reviewed and were otherwise negative Physical Exam Vital Signs Vital Signs - 24 hr 06/16/19 20:18 06/16/19 20:20 06/16/19 20:57 Temperature 97.5 F L Temperature Source Oral Sepsis Recent Fever Within 48 Hours No Sepsis Action Taken by Nursing No Action Required Pulse Rate 57 L 60 59 L Pulse Rate from SpO2 Sensor 57 L 59 L Respiratory Rate 15 19 19 Respiratory Effort / Characteristics Non-Labored Spontaneous Respiratory Depth Normal Respiratory Pattern Regular Blood Pressure 195/79 H 195/79 H Blood Pressure Mean 117 117 Pulse Oximetry 94 97 95 Oxygen Delivery Method Room Air 06/16/19 21:00 06/16/19 21:01 06/16/19 21:10 Temperature Temperature Source Sepsis Recent Fever Within 48 Hours Sepsis Action Taken by Nursing Pulse Rate 59 L 58 L 60 Pulse Rate from SpO2 Sensor 59 L 59 L 60 Respiratory Rate 19 21 16 Respiratory Effort / Characteristics Respiratory Depth Respiratory Pattern Blood Pressure 195/77 H Blood Pressure Mean 116 Pulse Oximetry 93 93 92 Oxygen Delivery Method 06/16/19 21:20 06/16/19 21:30 06/16/19 21:40 Temperature Temperature Source Sepsis Recent Fever Within 48 Hours Sepsis Action Taken by Nursing Pulse Rate 61 60 62 Pulse Rate from SpO2 Sensor 60 60 61 Respiratory Rate 19 21 21 Respiratory Effort / Characteristics Respiratory Depth Respiratory Pattern Blood Pressure 191/74 H Blood Pressure Mean 113 Pulse Oximetry 91 92 92 Oxygen Delivery Method 06/16/19 21:50 06/16/19 22:00 06/16/19 22:01 Temperature Temperature Source Sepsis Recent Fever Within 48 Hours Sepsis Action Taken by Nursing Pulse Rate 63 62 65 Pulse Rate from SpO2 Sensor 63 62 63 Respiratory Rate 18 19 19 Respiratory Effort / Characteristics Respiratory Depth Respiratory Pattern Blood Pressure 180/70 H Blood Pressure Mean 106 Pulse Oximetry 92 91 91 Oxygen Delivery Method GENERAL: Sitting up in bed, disheveled, moderate distress. HEAD: normal cephalic, bruising to the right frontal region/face EYE EXAM: normal conjunctiva, PERRL and EOM's grossly intact OROPHARYNX: no exudate, no erythema, lips, buccal mucosa, and tongue normal and mucous membranes are moist EARS: TMs clear b/l NECK: supple, no nuchal rigidity, no adenopathy, non-tender CHEST: stable to compression anteriorly and posteriorly LUNGS: clear to auscultation. Normal chest wall mechanics HEART: no murmurs, S1 normal and S2 normal ABDOMEN: abdomen soft, non-tender, normo-active bowel sounds, no masses, no rebound or guarding. PELVIS: stable to compression anteriorly and posteriorly BACK: Back is symmetrical on inspection and there is no deformity, no midline tenderness, no CVA tenderness. UPPER EXTREMITIES: full active and passive range of motion of all joints without tenderness to palpation LOWER EXTREMITIES: full active and passive range of motion of all joints. Significant pain on palpation of the right proximal femur. DP 2/4. Right knee without tenderness to palpation. Right ankle without tenderness to palpation. NEURO EXAM: Awake and alert, not oriented to place or time. At baseline per medics. Normal sensorium, cranial nerves II-XII grossly intact, normal speech, no gross weakness of arms, no gross weakness of legs. GCS: 15. Course Vital signs were reviewed and showed hypertension. The patients medical record was reviewed The above diagnostic studies were performed and reviewed. ED treatments and interventions as stated above. 2001: The patient was evaluated in room A02. A complete history and physical examination was performed. 2225: I spoke with Dr. Liu, [facility] orthopedic surgery, about the patients case. 2137: I spoke with Dr. Laws, [facility] hospitalist, about the patient's case. He will further evaluate the patient. 2144: Upon reevaluation, the patient is stable. I discussed my findings with the patient and she understands and agrees with the treatment plan. 2147: I called the patient's daughter and left a message. Based on the patients age, coexisting illnesses, exam and lab findings the decision to treat as an inpatient was made. The patient remained stable while under my care. The patient will be evaluated for further management. Consultations Consultation #1: I spoke with Dr. Laws, [facility] hospitalist, about the patient's case. He will further evaluate the patient. Time: 21:38 Consultation #2: I spoke with Dr. Liu, [facility] orthopedic surgery, about the patients case. Time: 22:26 Administered Medications Acetaminophen (Tylenol) 500 mg PO BID KAMERON Stop: 07/17/19 20:59 Last Admin: 06/18/19 08:08 Dose: 500 mg Documented by: [id number] Admin: 06/17/19 20:37 Dose: 500 mg Documented by: [id number] Acyclovir (Zovirax) 200 mg PO DAILY KAMERON Stop: 07/18/19 08:59 Last Admin: 06/18/19 08:13 Dose: 200 mg Documented by: [id number] Cyanocobalamin (Vitamin B-12) 500 mcg PO DAILY K[facility]ERON Stop: 07/18/19 08:59 Last Admin: 06/18/19 08:13 Dose: 500 mcg Documented by: [id number] Escitalopram Oxalate (Lexapro Tab) 10 mg PO DAILY K[facility]ERON Stop: 07/18/19 08:59 Last Admin: 06/18/19 08:12 Dose: 10 mg Documented by: [id number] Potassium Chloride/Sodium Chloride (Normal Saline W/20 Meq Kcl) 20 meq in 1,000 mls @ 80 mls/hr IV .[id number] KAMERON Stop: 07/16/19 23:09 Last Infusion: 06/18/19 13:45 Dose: 0 mls/hr Documented by: [id number] Admin: 06/18/19 02:09 Dose: 80 mls/hr Documented by: [id number] Infusion: 06/18/19 02:09 Dose: 80 mls/hr Documented by: [id number] Admin: 06/17/19 14:33 Dose: 80 mls/hr Documented by: [id number] Infusion: 06/17/19 12:39 Dose: 0 mls/hr Documented by: [id number] Admin: 06/16/19 23:23 Dose: 80 mls/hr Documented by: [id number] Famotidine 20 mg/ Syringe 5 mls @ 2.5 mls/min IV Q12 K[facility]ERON Stop: 07/16/19 23:09 Last Admin: 06/18/19 08:24 Dose: 2.5 mls/min Documented by: [id number] Admin: 06/17/19 21:34 Dose: 2.5 mls/min Documented by: [id number] Admin: 06/17/19 09:58 Dose: 2.5 mls/min Documented by: [id number] Admin: 06/16/19 23:48 Dose: 2.5 mls/min Documented by: [id number] Levothyroxine Sodium (Synthroid) 50 mcg PO [id number] K[facility]ERON Stop: 07/18/19 06:29 Last Admin: 06/18/19 05:58 Dose: 50 mcg Documented by: [id number] Morphine Sulfate (Morphine Sulfate) 2 mg IV Q3H PRN PRN Reason: Severe Pain Stop: 06/30/19 23:09 Last Admin: 06/18/19 01:12 Dose: 2 mg Documented by: [id number] Admin: 06/17/19 18:43 Dose: 2 mg Documented by: [id number] Admin: 06/17/19 08:36 Dose: 2 mg Documented by: [id number] Admin: 06/16/19 23:23 Dose: 2 mg Documented by: [id number] Polyethylene Glycol (Miralax Powder Packet) 17 gm PO BID K[facility]ERON Stop: 07/17/19 20:59 Last Admin: 06/18/19 08:15 Dose: Not Given Documented by: [id number] Admin: 06/17/19 20:45 Dose: Not Given Documented by: [id number] Potassium Chloride (Klor-Con M20) 20 meq PO DAILY KAMERON Stop: 07/18/19 08:59 Last Admin: 06/18/19 08:11 Dose: 20 meq Documented by: [id number] Rivastigmine Tartrate (Exelon) 4.5 mg PO BID [facility] Stop: 07/17/19 20:59 Last Admin: 06/18/19 08:10 Dose: 4.5 mg Documented by: [id number] Admin: 06/17/19 20:38 Dose: 4.5 mg Documented by: [id number] Sennosides (Senokot) 8.6 mg PO HS KAMERON Stop: 07/17/19 20:59 Last Admin: 06/17/19 20:39 Dose: 8.6 mg Documented by: [id number] Tramadol HCl (Ultram) 50 mg PO Q6H PRN PRN Reason: Pain, Severe Stop: 07/17/19 14:02 Last Admin: 06/18/19 08:23 Dose: 50 mg Documented by: [id number] Vitamin D (Vitamin D3) 1,000 units PO DAILY KAMERON Stop: 07/18/19 08:59 Last Admin: 06/18/19 08:13 Dose: 1,000 units Documented by: [id number] Discontinued Medications Bacitracin (Bacitracin) Confirm Administered Dose 50,000 units .ROUTE .STK-MED ONE Stop: 06/18/19 14:11 Last Admin: 06/18/19 16:48 Dose: 50,000 units Documented by: [id number] Bupivacaine HCl/Epinephrine Bitart (Sensorcaine/Epinephrine 0.5% Mpf 1:200,000) Confirm Administered Dose 60 ml .ROUTE .STK-MED ONE Stop: 06/18/19 13:48 Last Admin: 06/18/19 16:48 Dose: 60 ml Documented by: [id number] Hydralazine HCl (Hydralazine Hcl) 10 mg IV NOW STA Stop: 06/17/19 10:42 Last Admin: 06/17/19 10:58 Dose: 10 mg Documented by: [id number] Cefazolin Sodium (Ancef 2000mg) 2,000 mg in 15 mls @ 3.75 mls/min IV PREOP ONE Stop: 06/17/19 18:40 Last Admin: 06/18/19 14:30 Dose: 3.75 mls/min Documented by: [id number] Morphine Sulfate (Morphine Sulfate) 3 mg IV NOW STA Stop: 06/16/19 20:11 Last Admin: 06/16/19 20:35 Dose: 3 mg Documented by: [id number] Ondansetron HCl (Zofran) 4 mg IV NOW STA Stop: 06/16/19 20:11 Last Admin: 06/16/19 20:35 Dose: 4 mg Documented by: [id number] Medical Decision Making Differential Diagnosis Differential diagnoses include major intracranial, cervical, spinal, thoracic, abdominal, pelvic and neurologic injury. Fracture, contusion, sprain, strain, laceration, abrasions included as well. Medical Records Attestation: I reviewed the patient's medical records. Home Medications Current Medication List: was personally reviewed by me Laboratory Data Attestation: I reviewed the patient's lab results. Result diagrams: 06/18/19 06:28 06/18/19 06:28 Lab Results 06/16/19 06/16/19 Range/Units 20:18 20:18 WBC 8.60 (4.8-10.8) K/uL RBC 3.54 L (4.2-5.4) M/uL Hgb 11.6 L (12.0-16.0) g/dL Hct 35.7 L (37-47) % MCV 100.8 H (80-100) fL MCH 32.8 (25-34) pg MCHC 32.5 (32-36) g/dL RDW Std Deviation 48.6 H (36.4-46.3) fL RDW Coeff of Edward 13.1 (11.5-14.5) % Plt Count 297 (130-400) K/uL MPV 9.1 (7.4-10.4) fL Immature Gran % (Auto) 0.3 % Neut % (Auto) 55.3 % Lymph % (Auto) 35.8 % Rankin % (Auto) 5.7 % Eos % (Auto) 2.3 % Baso % (Auto) 0.6 % Immature Gran # (Auto) 0.03 H (0.00-0.02) K/uL Neut # (Auto) 4.75 (1.4-6.5) K/uL Lymph # (Auto) 3.08 (1.2-3.4) K/uL Rankin # (Auto) 0.49 (0.11-0.59) K/uL Eos # (Auto) 0.20 (0-0.5) K/uL Baso # (Auto) 0.05 (0-0.2) K/uL Sodium 141 (136-145) mmol/L Potassium 4.1 (3.5-5.1) mmol/L Chloride 107 (98-107) mmol/L Carbon Dioxide 28 (21-32) mmol/L Anion Gap 6.0 (3-11) BUN 24 H (7-18) mg/dl Creatinine 0.95 (0.6-1.2) mg/dl Est Cr Clr Drug Dosing Not Reportable Est GFR ( Amer) 62.0 Est GFR (Non-Af Amer) 53.5 BUN/Creatinine Ratio 25.4 H (10-20) Glucose 148 H (70-99) mg/dl Calcium 8.9 (8.5-10.1) mg/dl Total Bilirubin 0.2 (0.2-1) mg/dl AST 19 (15-37) U/L ALT 21 (12-78) U/L Alkaline Phosphatase 95 (45-117) U/L Total Protein 6.8 (6.4-8.2) gm/dl Albumin 3.6 (3.4-5.0) gm/dl Globulin 3.2 (2.5-4.0) gm/dl Albumin/Globulin Ratio 1.1 (0.9-2) Imaging Data Radiologist's Impression: Radiology results as stated below per my review and the radiologist's interpretation: CT SCAN OF THE CERVICAL SPINE CLINICAL HISTORY: Fall. Head injury. COMPARISON STUDY: No priors. TECHNIQUE: CT scan of the cervical spine is performed from the skull base to the upper thoracic spine. Images are reviewed in the axial, sagittal, and coronal planes. IV contrast was not administered for this examination. A dose lowering technique was utilized adhering to the principles of ALARA. CT DOSE: 953.77 mGy.cm FINDINGS: Skeletal structures: The skeletal structures are osteopenic. There is no evidence of fracture or subluxation involving the cervical spine. Vertebral body height and alignment are maintained. There is straightening of the cervical lordosis. Anterior osteophytes are seen throughout. The odontoid process and lateral masses are intact. The atlantoaxial articulation is preserved noting productive degenerative change. The spinous processes appear intact. There is moderate to advanced multilevel cervical spondylosis. Uncovertebral and facet arthropathy contribute to neural from stenosis at most levels. Intervertebral discs: There is moderate to advanced disc space narrowing seen at C5-C6 and C6-C7. Mild to moderate disc space narrowing is seen at the remaining cervical levels. Central canal: Posterior disc osteophyte complexes at C3-C4, C5-C6, and C6-C7 likely contribute to mild acquired compromise of the central canal. Soft tissues: The prevertebral and paraspinous soft tissues are within normal limits. Left lobe of the thyroid gland is diminutive versus surgically absent. Calvarium: The visualized calvarium at the skull base appears intact. Brain parenchyma: Partially visualized brain parenchyma the skull base is within normal limits noting age-related involutional change. Sinuses and mastoids: The visualized paranasal sinuses are clear. The mastoid air cells are well pneumatized. Lung apices: Clear as visualized. IMPRESSION: 1. There is no evidence of fracture or subluxation involving the cervical spine. 2. Osteopenia and spondylotic change as above. Electronically signed by: Corey Coker M.D. 06/16/2019 9:17 PM SINGLE VIEW PELVIS; 3 VIEWS RIGHT FEMUR CLINICAL HISTORY: Fall. Right hip pain. FINDINGS: An AP, portable, supine view of the pelvis with AP, frog-leg, and lateral portable views of the right femur are obtained. No prior studies are available for comparison at the time of dictation. The skeletal structures are osteopenic. There is no radiographic evidence of acute fracture involving the bony pelvis or the left hip. A bipolar right hip arthroplasty is in near anatomic alignment. There is a minimally distracted periprosthetic fracture identified in the proximal femoral shaft around the arthroplasty. The distal right femur is intact. Moderate degenerative joint space narrowing is seen in the left hip. Lumbosacral spondylosis is partially visualized. There is atherosclerotic calcification of the right femoral artery. Mild soft tissue edema is noted in the right proximal thigh. IMPRESSION: 1. There is no radiographic evidence of fracture involving the bony pelvis or left hip. 2. There is a minimally distracted periprosthetic spiral fracture around the right hip arthroplasty. Electronically signed by: Corey Coker M.D. 06/16/2019 9:[address] SCAN OF THE BRAIN WITHOUT IV CONTRAST CLINICAL HISTORY: Fall. Head injury. COMPARISON STUDY: No priors. TECHNIQUE: Unenhanced axial CT scan of the brain is performed from the vertex to the skull base. A dose lowering technique was utilized adhering to the principles of ALARA. FINDINGS: Brain parenchyma: There are age-related involutional changes noting moderate subcortical and periventricular microangiopathic change. There is no hemorrhage, mass effect, or evidence of acute territorial ischemia by CT criteria. Abrams- white matter differentiation is preserved. No extra-axial fluid collection is seen. Ventricles, sulci, cisterns: Prominent secondary to involutional change. Intracranial vasculature: There is atherosclerotic calcification of the cavernous carotid and vertebral arteries. Calvarium: The skeletal structures are osteopenic. No depressed calvarial fracture is identified. Soft tissues: There is a small right frontal scalp contusion. Sinuses and mastoids: The visualized paranasal sinuses are clear. The mastoid air cells are well pneumatized. Orbits: The bony orbits are grossly intact. There is a left ocular lens implant. IMPRESSION: There is no hemorrhage, mass effect, or evidence of acute territorial ischemia by CT criteria. Electronically signed by: Corey Coker M.D. 06/16/2019 8:55 PM SINGLE VIEW CHEST CLINICAL HISTORY: Fall. FINDINGS: An AP, portable, supine chest radiograph is compared to study dated 07/31/2012. The examination is degraded by portable technique and patient rotation. The heart is enlarged and there is atherosclerotic calcification of the thoracic aorta. The pulmonary vasculature is noncongested. Chronic interstitial thickening is similar to previous. Mild scarring/atelectasis is noted at the lung bases. No airspace consolidation or large pleural effusion is identified. No pneumothorax is seen. The skeletal structures are osteopenic. The bony thorax is grossly intact. IMPRESSION: Cardiomegaly with no acute cardiopulmonary abnormality. Electronically signed by: Corey Coker M.D. 06/16/2019 9:18 PM SINGLE VIEW PELVIS; 3 VIEWS RIGHT FEMUR CLINICAL HISTORY: Fall. Right hip pain. FINDINGS: An AP, portable, supine view of the pelvis with AP, frog-leg, and lateral portable views of the right femur are obtained. No prior studies are available for comparison at the time of dictation. The skeletal structures are osteopenic. There is no radiographic evidence of acute fracture involving the bony pelvis or the left hip. A bipolar right hip arthroplasty is in near anatomic alignment. There is a minimally distracted periprosthetic fracture identified in the proximal femoral shaft around the arthroplasty. The distal right femur is intact. Moderate degenerative joint space narrowing is seen in the left hip. Lumbosacral spondylosis is partially visualized. There is atherosclerotic calcification of the right femoral artery. Mild soft tissue edema is noted in the right proximal thigh. IMPRESSION: 1. There is no radiographic evidence of fracture involving the bony pelvis or left hip. 2. There is a minimally distracted periprosthetic spiral fracture around the right hip arthroplasty. Electronically signed by: Corey Coker M.D. 06/16/2019 9:13 PM ECG Data Attestation: I personally reviewed and interpreted this ECG as follows: Indication: other (fall) Rate (beats per minute): 58 Rhythm: sinus bradycardia Findings: + other (normal axis) and + T-wave inversion (Septal); no PVC Blood Pressure Blood Pressure Findings: Elevated blood pressure Blood Pressure Disposition: further management by hospitalist MYAH Narrative Patient is an 81-year-old female that presents the ER following a mechanical fall. She has a past medical history of dementia and was complaining of right hip pain. There is no reported syncopal event. On exam she has severe pain and tenderness over the right proximal femur. IVs were obtained along with labs. Labs show mild anemia 10. No significant leukocytosis. BMP was unremarkable. CT head and neck show no acute fractures. X-rays of the pelvis and femur show right periprosthetic fracture of the right femur. This was discussed with Dr. Zelaya from orthopedic surgery. I did eventually discussed with the patient's daughter notes that she had the surgery at another facility. Patient was given IV fluids and IV narcotics. Updated at bedside although she likely did not understand. She was admitted for right hip fracture to the hospitalist. This patient was seen by myself Dr. Alexander Tabares DO. My scribe accidentally signed this note to Dr. Finch. Impression & Plan Femur fracture, right, Fall, Facial bruising Discharge Plan Visit Data *Final* Discharge Date/Time: 06/16/19 22:47 Chief Complaint: Fall Stated Complaint: FALL, R LEG PAIN ED Provider: Alexander Tabares Discharge Problem: Femur fracture, right, Fall, Facial bruising Patient Disposition: Admitted As Inpatient Discharge Instructions Interventions: ED Discharge Assessment Last Done: 06/16/19 22:47 Discharge Problem: Femur fracture, right Qualifiers: Encounter type: initial encounter Femur location: unspecified portion of femur Fracture type: closed Fracture morphology: unspecified fracture morphology Qualified Code(s): S72.91XA - Unspecified fracture of right femur, initial encounter for closed fracture Fall Qualifiers: Encounter type: initial encounter Qualified Code(s): W19.XXXA - Unspecified fall, initial encounter Facial bruising Qualifiers: Encounter type: initial encounter Qualified Code(s): S00.83XA - Contusion of other part of head, initial encounter The scribe's documentation has been prepared under my direction and personally reviewed by me in its entirety. I confirm that the note above accurately reflects all work, treatment, procedures, and medical decision making performed by me.
[2019-06-18] MEDS ORDERED: LIDOCAINE HCL 2% 2 ML VIAL/AMP(20MG/ML) INFIL ONE (14:05)
[2019-06-18] MEDS ORDERED: NEOSTIGMINE METHYLSULFATE 5 MG/5 ML SYR ONE (14:05)
[2019-06-18] MEDS ORDERED: ONDANSETRON INJ 2 MG/ML 2 ML VIAL ONE (14:05)
[2019-06-18] MEDS ORDERED: PROPOFOL IV EMULSION 10 MG/ML 20 ML VIAL IV ONE (14:05)
[2019-06-18] MEDS ORDERED: SUCCINYLCHOLINE CHLORIDE 20 MG/ML 10 ML VIAL ONE (14:05)
[2019-06-18] MEDS ORDERED: PHENYLEPHRINE HCL 10 MG/ML VIAL ONE (14:05)
[2019-06-18] MEDS ORDERED: ePHEDrine sulfate 50 MG/ML AMP ONE (14:05)
[2019-06-18] MEDS ORDERED: GLYCOPYRROLATE 0.2 MG/ML VIAL ONE (14:05)
[2019-06-18] MEDS ORDERED: DEXAMETHASONE SOD INJ 4 MG/ML VIAL ONE (14:05)
[2019-06-18] MEDS ORDERED: fentaNYL citrate 100 MCG/2 ML VIAL ONE ×3 (14:06→15:56)
[2019-06-18] MEDS ORDERED: BACITRACIN INJ 50,000 UNIT VIAL ONE (14:10)
[2019-06-18] MEDS ORDERED: CEFAZOLIN 2,000 MG/15 ML IV PUSH IV ONE (14:16)
--- NOTE | 2019-06-18 14:57 | Anesthesiology Consultation ---
Date of Service June 18, 2019 Assessment & Plan Chart Review Chart Review: Acceptable Risk for Surgery and Patient NOT seen in Pre Admission Testing Consults Requested none Proposed Anesthesia Risk / Benefits Reviewed With: PT / POA / Parent / Guardian, Accepts Plan and Informed Consent Obtained History Surgery Operation Date: 06/18/19 14:50 Proposed Procedures p Right Periprosthetic Hip Fracture Open Reduction Internal Fixation - Galdino Wells MD Height/Weight Height: 5 ft 4 in Weight: 69.1 kg Allergies Allergy/AdvReac Type Severity Reaction Status Date / Time aspirin Allergy Unknown unknown Verified 06/16/19 21:14 donepezil Allergy Unknown unknown Verified 06/16/19 21:14 lactose Allergy Unknown GI ISSUES Verified 06/16/19 21:14 memantine Allergy Unknown unknown Verified 06/16/19 21:14 Medications Home Medications Medication Instructions Recorded Confirmed Last Taken acetaminophen 500 mg PO BID 06/16/19 06/16/19 Unknown acyclovir 200 mg PO DAILY 06/16/19 06/16/19 Unknown cholecalciferol (vitamin D3) 1,000 unit PO DAILY 06/16/19 06/16/19 Unknown [Vitamin D3] cyanocobalamin (vitamin B-12) 500 mcg PO DAILY 06/16/19 06/16/19 Unknown [Vitamin B-12] escitalopram oxalate 10 mg PO DAILY 06/16/19 06/16/19 Unknown eyelid cleanser combination 5 1 pad TOPICAL 3XWK 06/16/19 06/16/19 Unknown [OcuSoft Lid Scrub] famotidine 20 mg PO HS PRN 06/16/19 06/16/19 Unknown levothyroxine 50 mcg PO 5XWK 06/16/19 06/16/19 Unknown levothyroxine 75 mcg PO 2XWK 06/16/19 06/16/19 Unknown polyethylene glycol 3350 17 g PO BID 06/16/19 06/16/19 Unknown potassium chloride [Klor-Con M20] 20 meq PO DAILY 06/16/19 06/16/19 Unknown rivastigmine tartrate 4.5 mg PO BID 06/16/19 06/16/19 Unknown sennosides [senna] 8.6 mg PO HS 06/16/19 06/16/19 Unknown tramadol 50 mg PO Q6H PRN 06/16/19 06/16/19 Unknown Active Medications Generic Name Dose Route Start Last Admin Trade Name Freq PRN Reason Stop Dose Admin Acetaminophen 500 mg 06/17/19 21:00 06/18/19 08:08 Tylenol PO 07/17/19 20:59 500 mg BID KAMERON Administration Acyclovir 200 mg 06/18/19 09:00 06/18/19 08:13 Zovirax PO 07/18/19 08:59 200 mg DAILY KAMERON Administration Cyanocobalamin 500 mcg 06/18/19 09:00 06/18/19 08:13 Vitamin B-12 PO 07/18/19 08:59 500 mcg DAILY KAMERON Administration Escitalopram Oxalate 10 mg 06/18/19 09:00 06/18/19 08:12 Lexapro Tab PO 07/18/19 08:59 10 mg DAILY KAMERON Administration Potassium Chloride/Sodium Chloride 20 meq in 1,000 mls @ 80 mls/hr 06/16/19 23:10 06/18/19 13:45 Normal Saline W/20 Meq Kcl IV 07/16/19 23:09 0 mls/hr .[id number] KAMERON Infusion Famotidine 20 mg/ Syringe 5 mls @ 2.5 mls/min 06/16/19 23:10 06/18/19 08:24 IV 07/16/19 23:09 2.5 mls/min Q12 KAMERON Administration Levothyroxine Sodium 50 mcg 06/18/19 06:30 06/18/19 05:58 Synthroid PO 07/18/19 06:29 50 mcg [id number] KAMERON Administration Morphine Sulfate 2 mg 06/16/19 23:10 06/18/19 01:12 Morphine Sulfate IV 06/30/19 23:09 2 mg Q3H PRN Administration Severe Pain Polyethylene Glycol 17 gm 06/17/19 21:00 06/18/19 08:15 Miralax Powder Packet PO 07/17/19 20:59 Not Given BID KAMERON Potassium Chloride 20 meq 06/18/19 09:00 06/18/19 08:11 Klor-Con M20 PO 07/18/19 08:59 20 meq DAILY KAMERON Administration Rivastigmine Tartrate 4.5 mg 06/17/19 21:00 06/18/19 08:10 Exelon PO 07/17/19 20:59 4.5 mg BID KAMERON Administration Sennosides 8.6 mg 06/17/19 21:00 06/17/19 20:39 Senokot PO 07/17/19 20:59 8.6 mg HS KAMERON Administration Tramadol HCl 50 mg 06/17/19 14:03 06/18/19 08:23 Ultram PO 07/17/19 14:02 50 mg Q6H PRN Administration Pain, Severe Vitamin D 1,000 units 06/18/19 09:00 06/18/19 08:13 Vitamin D3 PO 07/18/19 08:59 1,000 units DAILY KAMERON Administration NPO Date Last Intake of Fluids: 06/18/19 Time Last Intake of Fluids: 08:30 Last Intake of Fluids Comment: sips with morning meds Date Last Intake of Solids: 06/17/19 Time Last Intake of Solids: 23:00 Past Medical History Medical History Hyperlipidemia (Chronic) Hypertension (Chronic) Dementia (Chronic) Hypothyroidism (Chronic) GERD (gastroesophageal reflux disease) (Chronic) Exercise / Class Metabolic Activity II 4-5 Yardwork/Stairs/Walk up hill Past Anesthesia History No Hx of Anesthesia Complications and No Family Hx of Anesthesia Complications History of PONV No Hx of PONV and No Hx of Motion Sickness Social History Smoking Status: Unknown if ever smoked Physical Exam Vital Signs Last Vital Signs Temp 36.5 C 06/18/19 13:54 Pulse 76 06/18/19 13:54 Resp 20 06/18/19 13:54 BP 204/76 H 06/18/19 13:54 Pulse Ox 94 06/18/19 13:54 ENMT Mouth: no TMJ abnormality Thyromental Distance: > or= 3.5 Finger Breadths Mallampati Class: II Neck normal visual inspection Respiratory normal respiratory effort Auscultation: lungs clear to auscultation bilaterally Cardiovascular Rate/Rhythm: regular rate and regular rhythm Heart Sounds: no murmur Vessels: no carotid bruit Neurologic moves all extremities Psychiatric Orientation: alert and oriented x 3 Testing Laboratory Results 06/18/19 06:28 06/18/19 06:28 Urine Color Yellow 06/17/19 10:30 Urine Appearance Clear (Clear) 06/17/19 10:30 Urine pH 7.0 (4.5-7.5) 06/17/19 10:30 Ur Specific [place] 1.016 (1.000-1.030) 06/17/19 10:30 Urine Protein Negative (Negative) 06/17/19 10:30 Urine Glucose (UA) Negative (Negative) 06/17/19 10:30 Urine Ketones Negative (Negative) 06/17/19 10:30 Urine Nitrite Negative (Negative) 06/17/19 10:30 Ur Leukocyte Esterase 1+ (Negative) H 06/17/19 10:30 Urine WBC (Auto) 1-5 /hpf (0-5) 06/17/19 10:30 Urine RBC (Auto) 0-4 /hpf (0-4) 06/17/19 10:30 U Hyaline Cast (Auto) 0 /lpf (0-5) 06/17/19 10:30 U Epithel Cells (Auto) 5-10 /lpf (0-5) H 06/17/19 10:30 Urine Bacteria (Auto) Negative (Negative) 06/17/19 10:30 Blood Type O Positive 06/17/19 19:17 Antibody Screen NEGATIVE 06/17/19 19:17
[2019-06-18] MEDS ORDERED: ePHEDrine sulfate 50 MG/ML AMP IV PRN (15:03)
[2019-06-18] MEDS ORDERED: HYDROmorphone INJ 2 MG/ML SYR/VIAL IV PRN (15:03)
[2019-06-18] MEDS ORDERED: ATROPINE SULFATE 0.1 MG/ML 10ML SYR IV PRN (15:03)
[2019-06-18] MEDS ORDERED: ROCURONIUM BROMIDE 10 MG/ML 5 ML VIAL ONE (16:25)
--- NOTE | 2019-06-18 17:18 | Emergency Department Note ---
History of Present Illness General Chief complaint: Fall Stated complaint: FALL, R LEG PAIN Time Seen by Provider: 06/16/19 20:03 Source: patient and EMS Mode of arrival: EMS Limitations: other (dementia) History of Present Illness Provider complaint: Fall Maximum Pain Intensity: 8 The patient is a 89 year old female with a PMHx of HLD, HTN, dementia, and hypothyroidism who presents to the Emergency Room with complaints of an episode of a ground level fall that occurred [employer]. Per EMS, the patient was being held to the ground by the staff at [facility], her residence, because they were concerned about her lower extremities after the fall. EMS notes that the staff at [facility] stated the patient was more agitated than her baseline. The patient denies any pain or other complaints. Per EMS, the patient does not take blood thinners. Home Medications Home Medications Medication Instructions Recorded Confirmed Type acetaminophen 500 mg PO BID 06/16/19 06/16/19 History acyclovir 200 mg PO DAILY 06/16/19 06/16/19 History cholecalciferol (vitamin D3) 1,000 unit PO DAILY 06/16/19 06/16/19 History [Vitamin D3] cyanocobalamin (vitamin B-12) 500 mcg PO DAILY 06/16/19 06/16/19 History [Vitamin B-12] escitalopram oxalate 10 mg PO DAILY 06/16/19 06/16/19 History eyelid cleanser combination 5 1 pad TOPICAL 3XWK 06/16/19 06/16/19 History [OcuSoft Lid Scrub] famotidine 20 mg PO HS PRN 06/16/19 06/16/19 History levothyroxine 50 mcg PO 5XWK 06/16/19 06/16/19 History levothyroxine 75 mcg PO 2XWK 06/16/19 06/16/19 History polyethylene glycol 3350 17 g PO BID 06/16/19 06/16/19 History potassium chloride [Klor-Con M20] 20 meq PO DAILY 06/16/19 06/16/19 History rivastigmine tartrate 4.5 mg PO BID 06/16/19 06/16/19 History sennosides [senna] 8.6 mg PO HS 06/16/19 06/16/19 History tramadol 50 mg PO Q6H PRN 06/16/19 06/16/19 History Allergies Allergy/AdvReac Type Severity Reaction Status Date / Time aspirin Allergy Unknown unknown Verified 06/16/19 21:14 donepezil Allergy Unknown unknown Verified 06/16/19 21:14 lactose Allergy Unknown GI ISSUES Verified 06/16/19 21:14 memantine Allergy Unknown unknown Verified 06/16/19 21:14 Past Med/Surg History Medical History Hyperlipidemia (Chronic) Hypertension (Chronic) Dementia (Chronic) Hypothyroidism (Chronic) GERD (gastroesophageal reflux disease) (Chronic) Social History Preferred Language: Georgian Communication Ability: Impaired 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 HEAD: normal cephalic, bruising to the right frontal region/face EYE EXAM: normal conjunctiva, PERRL and EOM's grossly intact OROPHARYNX: no exudate, no erythema, lips, buccal mucosa, and tongue normal and mucous membranes are moist EARS: TMs clear b/l NECK: supple, no nuchal rigidity, no adenopathy, non-tender CHEST: stable to compression anteriorly and posteriorly LUNGS: clear to auscultation. Normal chest wall mechanics HEART: no murmurs, S1 normal and S2 normal ABDOMEN: abdomen soft, non-tender, normo-active bowel sounds, no masses, no rebound or guarding. PELVIS: stable to compression anteriorly and posteriorly BACK: Back is symmetrical on inspection and there is no deformity, no midline tenderness, no CVA tenderness. UPPER EXTREMITIES: full active and passive range of motion of all joints without tenderness to palpation LOWER EXTREMITIES: full active and passive range of motion of all joints. Significant pain on palpation of the right proximal femur. DP 2/4. Right knee without tenderness to palpation. Right ankle without tenderness to palpation. NEURO EXAM: Awake and alert, not oriented to place or time. At baseline per medics. No focal deficit with the exception of the right femur Course Course Vital signs were reviewed and showed hypertension. The patients medical record was reviewed The above diagnostic studies were performed and reviewed. ED treatments and interventions as stated above. 2001: The patient was evaluated in room A02. A complete history and physical examination was performed. 2226: I spoke with Dr. Liu, [facility] orthopedic surgery, about the patients case. 2137: I spoke with Dr. Laws, [facility] hospitalist, about the patient's case. He will further evaluate the patient. 2144: Upon reevaluation, the patient is stable. I discussed my findings with the patient and she understands and agrees with the treatment plan. 2147: I called the patient's daughter and left a message. Based on the patients age, coexisting illnesses, exam and lab findings the decision to treat as an inpatient was made. The patient remained stable while under my care. The patient will be evaluated for further management. Consultations Consultation #1: I spoke with Dr. Laws, [facility] hospitalist, about the patient's case. He will further evaluate the patient. Time: 21:38 Consultation #2: I spoke with Dr. Liu, [facility] orthopedic surgery, about the patients case. Administered Medications Acetaminophen (Tylenol) 500 mg PO BID KAMERON Stop: 07/17/19 20:59 Last Admin: 06/18/19 08:08 Dose: 500 mg Documented by: [id number] Admin: 06/17/19 20:37 Dose: 500 mg Documented by: [id number] Acyclovir (Zovirax) 200 mg PO DAILY KAMERON Stop: 07/18/19 08:59 Last Admin: 06/18/19 08:13 Dose: 200 mg Documented by: [id number] Cyanocobalamin (Vitamin B-12) 500 mcg PO DAILY KAMERON Stop: 07/18/19 08:59 Last Admin: 06/18/19 08:13 Dose: 500 mcg Documented by: [id number] Escitalopram Oxalate (Lexapro Tab) 10 mg PO DAILY KAMERON Stop: 07/18/19 08:59 Last Admin: 06/18/19 08:12 Dose: 10 mg Documented by: [id number] Potassium Chloride/Sodium Chloride (Normal Saline W/20 Meq Kcl) 20 meq in 1,000 mls @ 80 mls/hr IV .[id number] KAMERON Stop: 07/16/19 23:09 Last Infusion: 06/18/19 13:45 Dose: 0 mls/hr Documented by: [id number] Admin: 06/18/19 02:09 Dose: 80 mls/hr Documented by: [id number] Infusion: 06/18/19 02:09 Dose: 80 mls/hr Documented by: [id number] Admin: 06/17/19 14:33 Dose: 80 mls/hr Documented by: [id number] Infusion: 06/17/19 12:39 Dose: 0 mls/hr Documented by: [id number] Admin: 06/16/19 23:23 Dose: 80 mls/hr Documented by: [id number] Famotidine 20 mg/ Syringe 5 mls @ 2.5 mls/min IV Q12 KAMERON Stop: 07/16/19 23:09 Last Admin: 06/18/19 08:24 Dose: 2.5 mls/min Documented by: [id number] Admin: 06/17/19 21:34 Dose: 2.5 mls/min Documented by: [id number] Admin: 06/17/19 09:58 Dose: 2.5 mls/min Documented by: [id number] Admin: 06/16/19 23:48 Dose: 2.5 mls/min Documented by: [id number] Levothyroxine Sodium (Synthroid) 50 mcg PO [id number] [facility] Stop: 07/18/19 06:29 Last Admin: 06/18/19 05:58 Dose: 50 mcg Documented by: [id number] Morphine Sulfate (Morphine Sulfate) 2 mg IV Q3H PRN PRN Reason: Severe Pain Stop: 06/30/19 23:09 Last Admin: 06/18/19 01:12 Dose: 2 mg Documented by: [id number] Admin: 06/17/19 18:43 Dose: 2 mg Documented by: [id number] Admin: 06/17/19 08:36 Dose: 2 mg Documented by: [id number] Admin: 06/16/19 23:23 Dose: 2 mg Documented by: [id number] Polyethylene Glycol (Miralax Powder Packet) 17 gm PO BID [facility] Stop: 07/17/19 20:59 Last Admin: 06/18/19 08:15 Dose: Not Given Documented by: [id number] Admin: 06/17/19 20:45 Dose: Not Given Documented by: [id number] Potassium Chloride (Klor-Con M20) 20 meq PO DAILY [facility] Stop: 07/18/19 08:59 Last Admin: 06/18/19 08:11 Dose: 20 meq Documented by: [id number] Rivastigmine Tartrate (Exelon) 4.5 mg PO BID [facility] Stop: 07/17/19 20:59 Last Admin: 06/18/19 08:10 Dose: 4.5 mg Documented by: [id number] Admin: 06/17/19 20:38 Dose: 4.5 mg Documented by: [id number] Sennosides (Senokot) 8.6 mg PO HS KAMERON Stop: 07/17/19 20:59 Last Admin: 06/17/19 20:39 Dose: 8.6 mg Documented by: [id number] Tramadol HCl (Ultram) 50 mg PO Q6H PRN PRN Reason: Pain, Severe Stop: 07/17/19 14:02 Last Admin: 06/18/19 08:23 Dose: 50 mg Documented by: [id number] Vitamin D (Vitamin D3) 1,000 units PO DAILY KAMERON Stop: 07/18/19 08:59 Last Admin: 06/18/19 08:13 Dose: 1,000 units Documented by: [id number] Discontinued Medications Bacitracin (Bacitracin) Confirm Administered Dose 50,000 units .ROUTE .STK-MED ONE Stop: 06/18/19 14:11 Last Admin: 06/18/19 16:48 Dose: 50,000 units Documented by: [id number] Bupivacaine HCl/Epinephrine Bitart (Sensorcaine/Epinephrine 0.5% Mpf 1:200,000) Confirm Administered Dose 60 ml .ROUTE .STK-MED ONE Stop: 06/18/19 13:48 Last Admin: 06/18/19 16:48 Dose: 60 ml Documented by: [id number] Hydralazine HCl (Hydralazine Hcl) 10 mg IV NOW STA Stop: 06/17/19 10:42 Last Admin: 06/17/19 10:58 Dose: 10 mg Documented by: [id number] Cefazolin Sodium (Ancef 2000mg) 2,000 mg in 15 mls @ 3.75 mls/min IV PREOP ONE Stop: 06/17/19 18:40 Last Admin: 06/18/19 14:30 Dose: 3.75 mls/min Documented by: [id number] Morphine Sulfate (Morphine Sulfate) 3 mg IV NOW STA Stop: 06/16/19 20:11 Last Admin: 06/16/19 20:35 Dose: 3 mg Documented by: [id number] Ondansetron HCl (Zofran) 4 mg IV NOW STA Stop: 06/16/19 20:11 Last Admin: 06/16/19 20:35 Dose: 4 mg Documented by: [id number] Medical Decision Making Differential Diagnosis Differential diagnoses include major intracranial, cervical, spinal, thoracic, abdominal, pelvic and neurologic injury. Fracture, contusion, sprain, strain, laceration, abrasions included as well. Medical Records Attestation: I reviewed the patient's medical records. Home Medications Current Medication List: was personally reviewed by me Laboratory Data Attestation: I reviewed the patient's lab results. Result diagrams: 06/18/19 06:28 06/18/19 06:28 Lab Results 06/16/19 06/16/19 Range/Units 20:18 20:18 WBC 8.60 (4.8-10.8) K/uL RBC 3.54 L (4.2-5.4) M/uL Hgb 11.6 L (12.0-16.0) g/dL Hct 35.7 L (37-47) % MCV 100.8 H (80-100) fL MCH 32.8 (25-34) pg MCHC 32.5 (32-36) g/dL RDW Std Deviation 48.6 H (36.4-46.3) fL RDW Coeff of Edward 13.1 (11.5-14.5) % Plt Count 297 (130-400) K/uL MPV 9.1 (7.4-10.4) fL Immature Gran % (Auto) 0.3 % Neut % (Auto) 55.3 % Lymph % (Auto) 35.8 % Coal % (Auto) 5.7 % Eos % (Auto) 2.3 % Baso % (Auto) 0.6 % Immature Gran # (Auto) 0.03 H (0.00-0.02) K/uL Neut # (Auto) 4.75 (1.4-6.5) K/uL Lymph # (Auto) 3.08 (1.2-3.4) K/uL Coal # (Auto) 0.49 (0.11-0.59) K/uL Eos # (Auto) 0.20 (0-0.5) K/uL Baso # (Auto) 0.05 (0-0.2) K/uL Sodium 141 (136-145) mmol/L Potassium 4.1 (3.5-5.1) mmol/L Chloride 107 (98-107) mmol/L Carbon Dioxide 28 (21-32) mmol/L Anion Gap 6.0 (3-11) BUN 24 H (7-18) mg/dl Creatinine 0.95 (0.6-1.2) mg/dl Est Cr Clr Drug Dosing Not Reportable Est GFR ( Amer) 62.0 Est GFR (Non-Af Amer) 53.5 BUN/Creatinine Ratio 25.4 H (10-20) Glucose 148 H (70-99) mg/dl Calcium 8.9 (8.5-10.1) mg/dl Total Bilirubin 0.2 (0.2-1) mg/dl AST 19 (15-37) U/L ALT 21 (12-78) U/L Alkaline Phosphatase 95 (45-117) U/L Total Protein 6.8 (6.4-8.2) gm/dl Albumin 3.6 (3.4-5.0) gm/dl Globulin 3.2 (2.5-4.0) gm/dl Albumin/Globulin Ratio 1.1 (0.9-2) Blood Pressure Blood Pressure Findings: Elevated blood pressure Blood Pressure Disposition: elevated BP felt to be situational MDM Narrative Patient is an 81-year-old female that presents the ER following a mechanical fall. She has a past medical history of dementia and was complaining of right hip pain. There is no reported syncopal event. On exam she has severe pain and tenderness over the right proximal femur. IVs were obtained along with labs. Labs show mild anemia 10. No significant leukocytosis. BMP was unremarkable. CT head and neck show no acute fractures. X-rays of the pelvis and femur show right periprosthetic fracture of the right femur. This was discussed with Dr. Zelaya from orthopedic surgery. I did eventually discussed with the patient's daughter notes that she had the surgery at another facility. Patient was given IV fluids and IV narcotics. Updated at bedside although she likely did not understand. She was admitted for right hip fracture to the hospitalist. Patient again was seen by myself Dr. Alexander Tabares DO in the initial note was sent inappropriately to Dr. Finch by my scribe at that time. Impression & Plan Femur fracture, right, Fall, Facial bruising Discharge Plan Visit Data *Final* Discharge Date/Time: 06/16/19 22:47 Chief Complaint: Fall Stated Complaint: FALL, R LEG PAIN ED Provider: Alexander Tabares Discharge Problem: Femur fracture, right, Fall, Facial bruising Patient Disposition: Admitted As Inpatient Discharge Instructions Interventions: ED Discharge Assessment Last Done: 06/16/19 22:47 Discharge Problem: Femur fracture, right Qualifiers: Encounter type: initial encounter Femur location: unspecified portion of femur Fracture type: closed Fracture morphology: unspecified fracture morphology Qualified Code(s): S72.91XA - Unspecified fracture of right femur, initial encounter for closed fracture Fall Qualifiers: Encounter type: initial encounter Qualified Code(s): W19.XXXA - Unspecified fall, initial encounter Facial bruising Qualifiers: Encounter type: initial encounter Qualified Code(s): S00.83XA - Contusion of other part of head, initial encounter
--- NOTE | 2019-06-18 17:20 | Fluoroscopy Report ---
FL hip RT 2-3V CLINICAL HISTORY: Right hip fracture. Internal fixation COMPARISON STUDY: Right femur 06/16/2019. FLUOROSCOPY TIME: 51 seconds. FINDINGS: 8 fluoroscopic spot images of the right hip demonstrate internal fixation of a periprosthet ic fracture with a lateral cortical plate, screws, and cerclage wires. The hardware appears intact. T he alignment is anatomic. There is a right total hip arthroplasty.. IMPRESSION: Fluoroscopy provided for internal fixation of a right hip periprosthetic fracture. Electronically signed by: Yovany Gallardo M.D. 06/18/2019 5:19 PM
--- NOTE | 2019-06-18 17:20 | Post Operative Brief Note ---
PG Immediate Post Op with CF Date of Surgery June 18, 2019 Pre & Post Diagnosis Operation Date: 06/18/19 14:50 Pre-Op Diagnosis: RIGHT PERIPROSTHETIC HIP FRACTURE Post-Op Diagnosis: RIGHT PERIPROSTHETIC HIP FRACTURE Procedure Operation Date: 06/18/19 14:50 Actual Procedures p Right Periprosthetic Hip Fracture Open Reduction Internal Fixation(Right) - Galdino Wells MD Surgeon Galdino Wells MD Tax Manager Alla, PAC Estimated Blood Loss 200 Findings Consistent with Post-Op Diagnosis Fluids 1600 cc Anesthesia Type General Complications none Disposition Accompanied Patient To Recovery: No Disposition: Recovery Room
--- NOTE | 2019-06-18 18:07 | Anesthesiology Progress Note ---
Date of Service June 18, 2019 Anesthesia Post Procedure Vital Signs Vital Signs: Temp Pulse Pulse Resp BP BP Pulse Ox 06/18/19 18:00 64 22 155/82 H 95 06/18/19 17:50 67 19 98 06/18/19 17:40 71 20 169/88 H 99 06/18/19 17:30 74 12 172/70 H 99 06/18/19 17:24 36.7 C 75 20 150/65 H 98 06/18/19 13:54 36.5 C 76 20 204/76 H 94 06/18/19 13:41 36.3 C L 77 16 183/98 H 93 06/18/19 07:43 37.1 C 79 16 148/77 H 93 06/17/19 23:10 37.1 C 82 16 169/67 H 91 Pain Intensity Right Hip: Pain Intensity: 8 Transfer of Care Handoff Completed per policy Notes Mental Status: see notes below (Arouses to verbal. Not oriented. Consistent with history of chronic dementia.) Patient Amnestic to Procedure: Yes Nausea / Vomiting: adequately controlled Pain: adequately controlled Airway Patency, RR, SpO2: stable & adequate BP & HR: stable & adequate Hydration State: stable & adequate Anesthetic Complications: no major complications apparent
[2019-06-18] MEDS ORDERED: MAGNESIUM HYDROXIDE SUSP 30 ML UDC PO PRN (18:38)
[2019-06-18] MEDS ORDERED: BISACODYL 10 MG SUPP PR PRN (18:38)
[2019-06-18] MEDS ORDERED: COUGH DROP (SUGAR FREE) LOZ 24 LOZ/1 BOX BUCCAL PRN (18:38)
[2019-06-18] MEDS ORDERED: ONDANSETRON INJ 2 MG/ML 2 ML VIAL IV PRN (18:38)
[2019-06-18] MEDS ORDERED: NALOXONE HCL 0.4 MG/1 ML VIAL/CARP IV PRN (18:38)
[2019-06-18] MEDS ORDERED: HYDROmorphone INJ 0.5 MG/0.5 ML SYR IV PRN (18:38)
--- NOTE | 2019-06-18 21:10 | Operative Report ---
DATE OF OPERATION: 06/18/2019 SURGEON: Galdino Wells MD TRANSIT OPERATOR: MURIEL Lawrence PREOPERATIVE DIAGNOSIS: Right periprosthetic femur fracture. POSTOPERATIVE DIAGNOSIS: Right periprosthetic femur fracture. PROCEDURE PERFORMED: Open reduction internal fixation right periprosthetic femur fracture. COMPLICATIONS: None. ESTIMATED BLOOD LOSS: 200 mL. FLUID REPLACEMENT: 1600 mL of crystalloid fluid replacement. ANESTHESIA: General. SPECIMENS: None. OPERATIVE INDICATIONS: The patient is an 89-year-old female with fairly severe dementia, but independent ambulator who sustained a fall 2 days ago. She was brought to the Emergency Room where x-rays revealed a periprosthetic femur fracture. The implant appeared stable and fixed to the lateral piece. The patient is indicated for surgical treatment. OPERATIVE IMPLANTS: 1. Operative implants consisted of Synthes 13-hole 4.5/5.0 stainless steel broad locking plate. 2. A 4.5 fully threaded cortical screws x2. 3. A 5.0 locking screws x3. 4. A 1.7 Synthes stainless steel cables x7 with 5 positioning pins. OPERATIVE PROCEDURE: The patient was taken to the operating room, identified and placed on the operating table in supine position. All contact areas were appropriately padded. IV antibiotics provided by anesthesia team. A general anesthetic was implemented. A bump was placed underneath the right hip. X-ray was brought in to make sure we could get adequate images. I then scrubbed the lower extremity with Hibiclens, prepped with ChloraPrep and draped in the usual sterile fashion. A direct lateral approach to the proximal femur was then performed through a longitudinal incision. Sharp dissection was carried through subcutaneous tissue down to the level of the IT band. The IT band was incised longitudinally extending up to the greater trochanter and extended distally. The vastus lateralis was retracted anteriorly. An incision was made in the posterior aspect of the vastus lateralis. We did inject locally with 60 mL of 0.5% Marcaine with epinephrine to limit blood loss. I exposed the lateral aspect of the femur. I then applied some longitudinal traction and reduced the fracture with a reduction clamp. I placed 2 cerclage cables around the fracture site. A 13-hole stainless steel 4.5/5.0 broad locking plate was then contoured slightly to the lateral aspect of the femur. It was fixed proximally with a single 4.5 cortical screw placed in a unicortical fashion to snug the plate down to the bone and then distally with a single 4.5 cortical screw. I then fixed it proximally with four additional cerclage cables. I try to maximize purchase at the top of that was where the fixation was going to be most tenuous. I then fixed it distally with three 5.0 locking screws and a single cerclage cable distally. X-ray was brought in. The fracture looked anatomically reduced. There was excellent bone to prosthesis contact. I elected to proceed with closing. The wound was irrigated with copious amounts of pulsatile lavage solution. The IT band and gluteal fascia were then closed with #1 Vicryl suture in running fashion. The subcutaneous tissues were then closed in 2 layers, the deep layer #1 Vicryl suture in a buried interrupted fashion and subcutaneous tissue with 2-0 Dexon suture in a buried interrupted fashion. The skin was closed with skin sophie. Leg was then cleaned, dried and a sterile dressing of Xeroform, 4 x 4, sterile ABD and foam tape was applied. The patient then brought out of general anesthesia and transferred to the recovery room in stable condition. The patient tolerated the procedure well with no complications. All needle and sponge counts were correct at the end of the operation. I attest to the content of the Intraoperative Record and any orders documented therein. Any exception s are noted below.
[2019-06-18] MEDS: CEFAZOLIN 1000MG 1,000 MG/7.5 ML SYR IV SCH (21:14)
[2019-06-18] MEDS: SENNA 8.6 MG TAB PO SCH ×2 (21:53)
--- NOTE | 2019-06-18 22:35 | Hospitalist Progress Note ---
Date of Service June 18, 2019 Assessment & Plan (1) Periprosthetic fracture around internal prosthetic right hip joint: Status post mechanical fall from ground-level Fall is likely secondary to unsteadiness Likely osteoporosis due to fracture from ground-level fall Continue supportive care Pain management Consult orthopedic Right shoulder x-ray to investigate pain showed Advanced degenerative changes of the glenohumeral and acromioclavicular joints with findings suggesting chronic rotator cuff impingement. No fracture. CT head and cervical spine showed no fracture Femur x-ray and pelvic x-ray showed minimally distracted periprosthetic spiral fracture around the right hip arthroplasty Urine analysis showed no infection. Patient is having a Open reduction internal fixation right periprosthetic femur fracture later today.. (2) GERD (gastroesophageal reflux disease): Placed on famotidine 20 mg IV every 12 hours (3) Hypothyroidism: restart synthroid check TSH (4) Dementia: Dementia/depression- restart Lexapro and rivastigmine. Swallow evaluation name Currently start on thick liquid to be safe (5) Fall: Status post mechanical fall from ground-level Fall is likely secondary to unsteadiness Likely osteoporosis due to fracture from ground-level fall (6) Facial bruising: Noted post fall, imaging without fracture. (7) Depression: restart depression meds (8) Hypertensive urgency: poorly controlled pressure plus pain start hydralazine 10mg IV prn Subjective Patient has advanced dementia. Unable to obtain history from patient. Review of Systems Review of Systems: Unobtainable due to mental health condition Physical Exam Physical Exam: General patient appears to be comfortable, not in acute distress, HEENT: Atraumatic , normocephalic /no jaundice /no pallor /anicteric /no dry mucous membrane /normal external ear inspection Neck: Supple /no swelling /central trach Heart: S1/S2 normal/regular rate and rhythm/no gallop /no rub /no murmur Lungs: Clear to auscultation bilaterally/normal chest with expansion/no rhonchi/no rales/no wheezing/no use of accessory muscles of respiration Abdomen: Soft/nontender/no guarding/no rebound/no organomegaly/no pulsatile mass Musculoskeletal: Currently sleeping lethargic. Neuro exam, lethargic, not following commands, slightly worse than her baseline dementia. Psychiatric exam unable to evaluate due to patient condition Skin: No rash on exposed skin area/no erythema Results & Data Vital Signs (Past 12 Hours) Vital Signs Temp Pulse Pulse Resp BP BP Pulse Ox 06/18/19 21:42 36.6 C 65 21 199/65 H 99 06/18/19 20:25 36.5 C 60 20 177/69 H 99 06/18/19 20:20 87 L 06/18/19 19:40 36.8 C 65 19 132/73 98 06/18/19 19:09 36.5 C 18 166/70 H 97 06/18/19 18:40 36.5 C 19 190/74 H 95 06/18/19 18:15 36.7 C 55 L 16 111/68 94 06/18/19 18:00 64 22 155/82 H 95 06/18/19 17:50 67 19 98 06/18/19 17:40 71 20 169/88 H 99 06/18/19 17:30 74 12 172/70 H 99 06/18/19 17:24 36.7 C 75 20 150/65 H 98 06/18/19 13:54 36.5 C 76 20 204/76 H 94 06/18/19 13:41 36.3 C L 77 16 183/98 H 93 PG Care Time/CCT Total # of Minutes Spent Total Time Spent with Patient: Total time spent is greater than 50% in coordination of care (as documented) at patient's floor/unit and/or counseling patient: (1) Facial bruising Encounter type: initial encounter Qualified Code(s): S00.83XA - Contusion of other part of head, initial encounter (2) Fall Encounter type: initial encounter Qualified Code(s): W19.XXXA - Unspecified fall, initial encounter
[2019-06-19] MEDS: NSS + 20MEQ KCL 20 MEQ/1,000 ML BAG IV SCH (05:24)
[2019-06-19] MEDS: CEFAZOLIN 1000MG 1,000 MG/7.5 ML SYR IV SCH (05:24)
[2019-06-19] MEDS: LEVOTHYROXINE SODIUM 50 MCG TABLET PO SCH ×2 (05:43→05:52)
[2019-06-19 07:41] LABS: Basophils # (auto) 0.02 K/uL (0-0.2); Basophils % (auto) 0.2 %; Eosinophils # (auto) 0.01 K/uL (0-0.5); Eosinophils % (auto) 0.1 %; Hemoglobin 9.5 g/dL (12.0-16.0); Immature Granulocytes # (auto) 0.02 K/uL (0.00-0.02); Immature Granulocytes % (auto) 0.2 %; Lymphocytes # (auto) 1.16 K/uL (1.2-3.4); Lymphocytes % (auto) 13.1 %; Mean Corpuscular Hgb Conc 32.8 g/dL (32-36); Mean Corpuscular Volume 100.7 fL (80-100); Mean Platelet Volume 8.7 fL (7.4-10.4); Monocytes # (auto) 1.19 K/uL (0.11-0.59); Monocytes % (auto) 13.4 %; Neutrophils # (auto) 6.48 K/uL (1.4-6.5); Platelet Count 243 K/uL (130-400); RDW Coefficient of Variation 13.3 % (11.5-14.5); RDW Standard Deviation 48.6 fL (36.4-46.3); Red Blood Count 2.88 M/uL (4.2-5.4); White Blood Count 8.88 K/uL (4.8-10.8)
[2019-06-19 08:11] LABS: Albumin Level 2.9 gm/dl (3.4-5.0); BUN Creatinine Ratio 12.5 (10-20); Calcium 8.4 mg/dl (8.5-10.1); Creatinine Clr Calc Pharmacy 41.2 ml/min; Est GFR (African American) 66.2; Est GFR (Non-African American) 57.1; Magnesium 1.9 mg/dl (1.8-2.4)
[2019-06-19 08:14] LABS: Albumin Globulin Ratio 0.9 (0.9-2); Bilirubin,Total 0.7 mg/dl (0.2-1); Globulin 3.1 gm/dl (2.5-4.0)
[2019-06-19] MEDS: ACYCLOVIR 200 MG CAP PO SCH (08:51)
[2019-06-19] MEDS: RIVASTIGMINE TARTRATE 1.5 MG CAP PO SCH ×2 (08:52→22:03)
[2019-06-19] MEDS: CHOLECALCIFEROL 1,000 UNITS TAB PO SCH (08:52)
[2019-06-19] MEDS: POTASSIUM CHLORIDE 20 MEQ TABCR PO SCH (08:54)
[2019-06-19] MEDS: CYANOCOBALAMIN 500 MCG TABLET (VITAMIN B-12) PO SCH (08:55)
[2019-06-19] MEDS: ESCITALOPRAM OXALATE 10 MG TAB PO SCH (08:55)
[2019-06-19] MEDS: ACETAMINOPHEN 500 MG TAB PO SCH ×2 (08:56→22:10)
[2019-06-19] MEDS: POLYETHYLENE (MIRALAX) 17 GM PACK PO SCH ×2 (08:59→22:14)
[2019-06-19] MEDS: TRAMADOL HCL 50 MG TABLET PO PRN (09:12)
[2019-06-19] MEDS: FAMOTIDINE 20 MG in SYRINGE 3 ML IV SCH (09:12)
--- NOTE | 2019-06-19 12:30 | Progress Note ---
DATE: 06/19/2019 SUBJECTIVE: An 89-year-old white female postop day 1 from ORIF of periprosthetic femur fracture. She seems to be doing okay. She has got severe dementia. Does not really follow commands. Does not look majorly uncomfortable. OBJECTIVE: VITAL SIGNS: Temperature is 36.6. Vital signs stable. GENERAL: Physical examination shows an elderly female who has got severe dementia. She kind of moves around in bed, just spontaneously. EXTREMITIES: Examination of the right hip and leg reveals the leg lengths to be equal. She moves her legs spontaneously. Dressing is clean, dry and intact. She is neurologically intact. LABORATORY DATA: Hemoglobin is 9.5. Hematocrit 29.0. Electrolytes are stable. ASSESSMENT: An 89-year-old white female with severe dementia postop day 1 from ORIF of periprosthetic femur fracture, doing pretty well. She is not going to be able to be compliant with weightbearing status. I do think she is pretty high risk for fall and I think probably contraindicated to do anything more aggressive than aspirin for DVT prophylaxis. Unfortunately, SHE IS ALLERGIC TO ASPIRIN and reactions unknown. PLAN: 1. DVT prophylaxis including thigh-high TEDs, SCDs. I would recommend a baby aspirin twice a day. Reaction to aspirin is unknown, but unlikely major issue. 2. PT/OT. She is touch weightbearing if possible. I am fully aware that she is probably going to put some weight on this leg and I think it is fixed well enough that it can probably tolerate that. 3. Medical management as per the medicine service. 4. Disposition: She is orthopedically okay for discharge any time medically stable. I will need to see her back 2 weeks out from surgery. Any orthopedic questions can be directed to me at [phone].
[2019-06-19] MEDS: MoRPHine SULFATE 2 MG/ML CARP IV PRN (14:00)
[2019-06-19] MEDS ORDERED: HydrALAZINE 10 MG TAB PO PRN (20:00)
[2019-06-19] MEDS ORDERED: ONDANSETRON 4 MG OD TAB PO PRN (20:00)
[2019-06-19] MEDS ORDERED: OXYCODONE/ACETAMINOPHEN 5mg/325mg TAB PO PRN (20:00)
[2019-06-19] MEDS: FAMOTIDINE 20 MG TAB PO SCH (22:07)
[2019-06-19] MEDS: SENNA 8.6 MG TAB PO SCH (22:13)
--- NOTE | 2019-06-19 23:22 | Hospitalist Progress Note ---
Date of Service June 19, 2019 Assessment & Plan (1) Periprosthetic fracture around internal prosthetic right hip joint: Status post mechanical fall from ground-level Fall is likely secondary to unsteadiness Likely osteoporosis due to fracture from ground-level fall Continue supportive care Pain management Consult orthopedic Right shoulder x-ray to investigate pain showed Advanced degenerative changes of the glenohumeral and acromioclavicular joints with findings suggesting chronic rotator cuff impingement. No fracture. CT head and cervical spine showed no fracture Femur x-ray and pelvic x-ray showed minimally distracted periprosthetic spiral fracture around the right hip arthroplasty Urine analysis showed no infection. S/P a Open reduction internal fixation right periprosthetic femur fracture on 04/18 Patient appears to be doing well. Will continue to monitor. (2) GERD (gastroesophageal reflux disease): Placed on famotidine 20 mg IV every 12 hours (3) Hypothyroidism: restart synthroid check TSH (4) Dementia: Dementia/depression- restart Lexapro and rivastigmine. Swallow evaluation name Currently start on thick liquid to be safe (5) Fall: Status post mechanical fall from ground-level Fall is likely secondary to unsteadiness Likely osteoporosis due to fracture from ground-level fall (6) Facial bruising: Noted post fall, imaging without fracture. (7) Depression: restart depression meds (8) Hypertensive urgency: poorly controlled pressure plus pain start hydralazine 10mg IV prn Subjective Patient is more awake but confused. Review of Systems Review of Systems: Review of system was unobtainable due to patient's lethargy and dementia Results & Data Vital Signs (Past 12 Hours) Vital Signs Temp Pulse Resp BP BP Pulse Ox 06/19/19 23:02 37.1 C 86 16 162/81 H 90 06/19/19 15:10 36.4 C L 84 16 144/59 H 95 06/19/19 11:59 36.5 C 93 H 18 208/72 H 92 PG Care Time/CCT Total # of Minutes Spent Total Time Spent with Patient: Total time spent is greater than 50% in coordination of care (as documented) at patient's floor/unit and/or counseling patient: (1) Facial bruising Encounter type: initial encounter Qualified Code(s): S00.83XA - Contusion of other part of head, initial encounter (2) Fall Encounter type: initial encounter Qualified Code(s): W19.XXXA - Unspecified fall, initial encounter
[2019-06-20] MEDS: POLYETHYLENE (MIRALAX) 17 GM PACK PO SCH ×3 (06:17→12:30)
[2019-06-20] MEDS: LEVOTHYROXINE SODIUM 50 MCG TABLET PO SCH ×2 (06:17→06:22)
[2019-06-20] MEDS: ESCITALOPRAM OXALATE 10 MG TAB PO SCH (08:18)
[2019-06-20] MEDS: CYANOCOBALAMIN 500 MCG TABLET (VITAMIN B-12) PO SCH (08:18)
[2019-06-20] MEDS: ACYCLOVIR 200 MG CAP PO SCH (08:18)
[2019-06-20] MEDS: CHOLECALCIFEROL 1,000 UNITS TAB PO SCH (08:18)
[2019-06-20] MEDS: POTASSIUM CHLORIDE 20 MEQ TABCR PO SCH (08:18)
[2019-06-20] MEDS: FAMOTIDINE 20 MG TAB PO SCH (08:18)
[2019-06-20] MEDS: RIVASTIGMINE TARTRATE 1.5 MG CAP PO SCH (08:18)
[2019-06-20] MEDS: ACETAMINOPHEN 500 MG TAB PO SCH (08:18)
[2019-06-20] MEDS ORDERED: LISINOPRIL 5 MG TAB PO ONE (14:41)
[2019-06-20] MEDS ORDERED: ASPIRIN 81 MG ECTAB PO STA (14:52)
--- NOTE | 2019-06-20 16:03 | Progress Note ---
DATE: 06/20/2019 SUBJECTIVE: An 89-year-old white female with significant underlying dementia postop day 2 from ORIF of right periprosthetic femur fracture. She seems to be more cooperative today. Very difficult to determine her comfort level. OBJECTIVE: VITAL SIGNS: Temperature 36.8. Vital signs stable. She has had some hypertension. GENERAL: Physical examination shows an elderly female. She is lying in bed. Does not really follow commands. EXTREMITIES: Examination of the right hip reveals the dressing to be in place. There is a little bit of bloody drainage on the dressing. Her thigh shows some mild swelling. Leg is well aligned. She does spontaneously move her foot. ASSESSMENT: An 89-year-old white female postoperative day 2 from ORIF of right periprosthetic femur fracture. She seems to be doing okay. Pain seems to be controlled. PLAN: 1. DVT prophylaxis including thigh-high TEDs, SCDs, and we would recommend trying a baby aspirin twice a day. Not sure what her allergies, but unlikely anything too significant. I think she is high risk for any more aggressive anticoagulation. 2. PT. She will be touch weightbearing on the right leg, knowing fully well that she is probably going to put some weight on this. 3. Medical management as per the medicine service. 4. Disposition: She is orthopedically okay for discharge any time medically stable. I need to see her back 2 weeks out from surgery date.
--- NOTE | 2019-06-21 13:04 | Coding Query ---
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 Please assist us with the question(s) below: Coding Question(s): There is a fracture of the right femur documented in the record and there is documentation of a fall and also documentation of, "Likely osteoporosis due to fracture from ground-level fall". Please clarify below, in your clinical opinion, regarding the right femur fracture. ( x ) likely an Osteoporotic Fracture ( ) likely a Fracture due to Trauma only and Not an Osteoporotic fracture Physician's Response(s): Thank you Sunni Gutierrez Principal Diagnosis: "that condition established after study, to be chiefly responsible for occasioning the admission of the patient to the hospital for care." Co-Existing Principal Diagnosis: "when two or more diagnoses equally meet the criteria for principal diagnosis as determined by the circumstances of admission, diagnostic work up, and/or therapy provided, and the Alphabetic Index, Tabular List, or another coding guideline does not provide sequencing direction, any one of the diagnoses may be sequenced first." "When the physician has documented what appears to be a current diagnosis in the body of the record, but has not included the diagnosis in the final diagnostic statement, the physician should be asked whether the diagnosis should be added." (Source Coding [facility] 2 QTR90. p3-4) TIM
[2019-06-23] MEDS ORDERED: LEVOTHYROXINE SODIUM 75 MCG TABLET PO SCH (06:30)
--- NOTE | 2019-06-25 21:50 | Discharge Summary ---
Date of Service June 20, 2019 Admission HPI Per Admitting Provider The patient is not able to contribute to HPI due to sedation from IV morphine. She is a resident of [facility], and was sent after a fall, to which she developed right hip pain and has a bruise over her right uatsdin area. Principal Diagnosis likely osteoporotic fracture Discharge Exam General patient appears to be comfortable, not in acute distress, HEENT: Atraumatic , normocephalic /no jaundice /no pallor /anicteric /no dry mucous membrane /normal external ear inspection Neck: Supple /no swelling /central trach Heart: S1/S2 normal/regular rate and rhythm/no gallop /no rub /no murmur Lungs: Clear to auscultation bilaterally/normal chest with expansion/no rhonchi/no rales/no wheezing/no use of accessory muscles of respiration Abdomen: Soft/nontender/no guarding/no rebound/no organomegaly/no pulsatile mass Skin: No rash on exposed skin area/no erythema Discharge Data Allergies Allergy/AdvReac Type Severity Reaction Status Date / Time aspirin Allergy Unknown unknown Verified 06/16/19 21:14 donepezil Allergy Unknown unknown Verified 06/16/19 21:14 lactose Allergy Unknown GI ISSUES Verified 06/16/19 21:14 memantine Allergy Unknown unknown Verified 06/16/19 21:14 Consultations 06/16/19 21:37 ED Decision to Admit Stat 06/16/19 23:10 Consult Case Management - Discharge Planning Routine 06/17/19 11:01 Consult Orthopedic Surgery Routine 06/18/19 18:38 Consult Case Management - Discharge Planning Routine Procedures Performed Operation Date: 06/18/19 14:50 Actual Procedures p Right Periprosthetic Hip Fracture Open Reduction Internal Fixation(Right) - Galdino Wells MD Ordered Studies 06/16/19 20:09 CT cervical spine wo con Stat CT head/brain wo con Stat 06/18/19 12:00 FL fluoroscopy <1hr Routine FL hip RT 2-3V Routine Hospital Course (1) Periprosthetic fracture around internal prosthetic right hip joint: Status post mechanical fall from ground-level Fall is likely secondary to unsteadiness Likely osteoporosis due to fracture from ground-level fall Continue supportive care Pain management Consult orthopedic Right shoulder x-ray to investigate pain showed Advanced degenerative changes of the glenohumeral and acromioclavicular joints with findings suggesting chronic rotator cuff impingement. No fracture. CT head and cervical spine showed no fracture Femur x-ray and pelvic x-ray showed minimally distracted periprosthetic spiral fracture around the right hip arthroplasty Urine analysis showed no infection. S/P a Open reduction internal fixation right periprosthetic femur fracture on 04/18 Patient appears to be doing well. Will discharge patient. (2) GERD (gastroesophageal reflux disease): Placed on famotidine 20 mg IV every 12 hours (3) Hypothyroidism: restart synthroid check TSH (4) Dementia: Dementia/depression- restart Lexapro and rivastigmine. Swallow evaluation name Currently start on thick liquid to be safe (5) Fall: Status post mechanical fall from ground-level Fall is likely secondary to unsteadiness Likely osteoporosis due to fracture from ground-level fall (6) Facial bruising: Noted post fall, imaging without fracture. (7) Depression: restart depression meds (8) Hypertensive urgency: poorly controlled pressure plus pain added lisinopril to discharge plan Total Time Total Time Spent Total Time Spent (In Minutes): 32 Total Time Includes: Examination of the Patient, Discharge Planning and Medication Reconciliation Discharge Plan Discharge Items Patient Disposition: Transfer Long-Term Fac Reason For Visit: RIGHT PERIPROSTHETIC HIP FRACTURE Discharge Diagnosis: right periprosthetic hip fracture Discharge Goals: Decrease discomfort Activity: Resume your previous activity Non-emergency contact: Primary Care Provider Call non-emergency contact if: you have any medication questions Follow-up/Referrals: Ruperto Eckert at [facility] [Primary Care Provider] - Diet: See below Diet Texture: Dental soft (bite-sized) Addtl Provider Instructions: Diet: Alternate between solids and liquids crush medication supervise meals fully alert and upright gives meds in a carrier single bites/ small sips/slow rate no straws. Aspirations precautions. I would recommend a baby aspirin twice a day. 2. PT/OT. She is touch weightbearing if possible. I am fully aware that she is probably going to put some weight on this leg and I think it is fixed well enough that it can probably tolerate that. 3. Disposition: Ortho will need to see her back 2 weeks out from surgery. Any orthopedic questions can be directed to me at [phone]. Prescriptions: New aspirin [Aspir-81] 81 mg tablet,delayed release (DR/EC) 81 mg PO BID Qty: 60 RF: 0 lisinopril 5 mg tablet 5 mg PO DAILY Qty: 30 RF: 0 Continued sennosides [senna] 8.6 mg Tablet 8.6 mg PO HS RF: 0 acetaminophen 500 mg Tablet 500 mg PO BID RF: 0 levothyroxine 75 mcg tablet 75 mcg PO 2XWK RF: 0 potassium chloride [Klor-Con M20] 20 mEq Tablet,Er Particles/Crystals 20 meq PO DAILY RF: 0 famotidine 20 mg Tablet 20 mg PO HS PRN (Reason: GERD) RF: 0 cyanocobalamin (vitamin B-12) [Vitamin B-12] 500 mcg Tablet 500 mcg PO DAILY RF: 0 levothyroxine 50 mcg tablet 50 mcg PO 5XWK RF: 0 rivastigmine tartrate 4.5 mg capsule 4.5 mg PO BID RF: 0 acyclovir 200 mg capsule 200 mg PO DAILY RF: 0 polyethylene glycol 3350 17 gram/dose Powder 17 g PO BID RF: 0 escitalopram oxalate 10 mg tablet 10 mg PO DAILY RF: 0 cholecalciferol (vitamin D3) [Vitamin D3] 1,000 unit (25 mcg) Tablet 1,000 unit PO DAILY RF: 0 OcuSoft Lid Scrub Pads, Medicated 1 pad TOPICAL 3XWK RF: 0 tramadol 50 mg tablet 50 mg PO Q6H PRN (Reason: Pain, Severe) Qty: 16 RF: 0 Stand-Alone Forms: [facility] Discharge Orders: Discharge Order (Routine); Ordered 06/20/19 Ordered By: Kane Santos Skilled Items Patient informed of condition?: Yes DNR: Yes Discharge Level of Care: Skilled Communicable Disease: No Discharge Prognosis: Stable Admission Data Admit Date/Time: 06/16/19 22:06 Attending Provider: Kane Santos Admit Provider: Shakir Laws Primary Care Provider: Ruperto Eckert [facility] Other Providers: Galdino Wells Service: Surgical Services Other Interventions: Discharge Summary Assessment (RN) Last Done: 06/20/19 17:28 DC Date/Time DO NOT enter until pt leaves facility: 06/20/19 17:39
== END 2019-06-20 17:39 | DRG 481 ==
LOC: ED 20:01 → 3W 22:06 → SUATTDRO 22:06 → 3W 22:47